=== PATIENT | female | born 1990 | race Caucasian/White ===

== ENCOUNTER → 2021-11-13 09:24 | Outpatient (CLI) | payer BC, SELFPAY ==
[2021-11-13 10:26] LABS: Add Manual Diff / Slide Review NO; Basophils Absolute Auto 0 /uL (0-100); Basophils Percent Auto 0.4 % (0-2); Eosinophils Absolute Auto 700 /uL (0-450); Eosinophils Percent Auto 6.5 % (2-4); Hematocrit 46.3 % (36-46); Hemoglobin 15.3 g/dL (12.0-16.0); Lymphocytes Absolute Auto 2300 /uL (1100-4500); Lymphocytes Percent Auto 23.2 % (25-40); Mean Corpuscular Hemoglobin 26.1 PG (26-34); Mean Corpuscular Volume 79.1 fL (80-100); Monocytes Absolute Auto 800 /uL (0-900); Monocytes Percent Auto 7.5 % (3-14); Neutrophils Absolute Auto 6300 /uL (1500-7000); Neutrophils Percent Auto 62.4 % (50-75); Platelet Count 346 X10^3/uL (150-400); Red Blood Cell Count 5.86 X10^6/uL (4.0-5.2); Red Cell Distribution Width 14.7 % (11.6-14.8); White Blood Cell Count 10.1 X10^3/uL (4.5-11.0)
[2021-11-13 10:43] LABS: Alanine Aminotransferase 24 IU/L (<35); Albumin 4.3 g/dL (3.5-5.0); Albumin Globulin Ratio 1.1 (1.0-2.8); Alkaline Phosphatase 107 U/L (38-126); Aspartate Aminotransferase 28 IU/L (14-36); BUN Creatinine Ratio 23.8 (6-22); Bilirubin Total 0.3 mg/dL (0.2-1.3); Blood Urea Nitrogen 19 mg/dL (7-17); Calcium 9.1 mg/dL (8.4-10.2); Carbon Dioxide 26 mmol/L (22-32); Chloride 104 mmol/L (98-107); Cholesterol 205 mg/dL (140-199); Estimated Glomerular Filt Rate > 60 mL/min (>60); Globulin 3.8 g/dL (1.7-4.1); Glucose 90 mg/dL (70-100); HDL Cholesterol 31 mg/dL (40-60); HEMOLYSIS < 15 (0-50); LDL Cholesterol Calculated 146 mg/dL (<100); Potassium 4.2 mmol/L (3.4-5.1); Sodium 143 mmol/L (137-145); Total Protein 8.1 g/dL (6.3-8.2); Triglycerides 139 mg/dL (35-150)
[2021-11-13 11:07] LABS: TSH w/ Reflex to FT4 1.37 uIU/mL (0.47-4.68)
[2021-11-24 14:07] LABS: Percent Free Testosterone 1.84 % (0.50-2.80); Testosterone Free 3.26 ng/dL (0.10-0.85); Testosterone Total 177.3 ng/dL (10.0-55.0)
== END ==
PROVIDERS: PCP Family Medicine; Referring Provider Family Medicine; Visit Provider Family Medicine
DX: F64.0 Transsexualism (principal); N28.0 Ischemia and infarction of kidney; Z79.01 Long term (current) use of anticoagulants; Z79.899 Other long term (current) drug therapy; Z87.890 Personal history of sex reassignment
CPT/HCPCS: 36415; 80053; 80061; 84402; 84403; 84443; 85025

== ENCOUNTER → 2022-02-22 09:20 | Outpatient (CLI) | payer OTHER, SELFPAY ==
[2022-02-22 09:54] LABS: Add Manual Diff / Slide Review NO; Basophils Absolute Auto 100 /uL (0-100); Basophils Percent Auto 0.9 % (0-2); Eosinophils Absolute Auto 1000 /uL (0-450); Eosinophils Percent Auto 8.7 % (2-4); Hemoglobin 15.4 g/dL (12.0-16.0); Lymphocytes Absolute Auto 2500 /uL (1100-4500); Lymphocytes Percent Auto 21.5 % (25-40); Mean Corpuscular HGB Conc 33.4 % (30-36); Mean Corpuscular Volume 77.9 fL (80-100); Monocytes Absolute Auto 800 /uL (0-900); Monocytes Percent Auto 6.7 % (3-14); Neutrophils Absolute Auto 7300 /uL (1500-7000); Neutrophils Percent Auto 62.2 % (50-75); Platelet Count 321 X10^3/uL (150-400); White Blood Cell Count 11.7 X10^3/uL (4.5-11.0)
[2022-02-22 10:08] LABS: D Dimer 313 ng/ml (<500)
[2022-02-22 10:11] LABS: Alanine Aminotransferase 35 IU/L (<35); Albumin 4.4 g/dL (3.5-5.0); Albumin Globulin Ratio 1.3 (1.0-2.8); Alkaline Phosphatase 112 U/L (38-126); Aspartate Aminotransferase 34 IU/L (14-36); BUN Creatinine Ratio 21.1 (6-22); Bilirubin Total 0.4 mg/dL (0.2-1.3); Blood Urea Nitrogen 15 mg/dL (7-17); Calcium 9.2 mg/dL (8.4-10.2); Carbon Dioxide 25 mmol/L (22-32); Chloride 103 mmol/L (98-107); Estimated Glomerular Filt Rate > 60 mL/min (>60); Globulin 3.5 g/dL (1.7-4.1); Glucose 92 mg/dL (70-100); HEMOLYSIS < 15 (0-50); Potassium 4.5 mmol/L (3.4-5.1); Sodium 141 mmol/L (137-145); Total Protein 7.9 g/dL (6.3-8.2)
[2022-02-25 17:48] LABS: Cardiolipin Ab IgG <9 GPL U/mL (0-14); Cardiolipin Ab IgM <9 MPL U/mL (0-12)
[2022-02-26 13:09] LABS: ANA Screen, IFA Negative (.)
[2022-02-26 18:37] LABS: Dil Russell Viper Venom Conf 1.7 ratio (0.8-1.2); Dilute Russell Viper Venom 92.7 sec (0.0-47.0); Dilute Russell Viper Venom Mix 54.8 sec (0.0-40.4); Lupus Reflex Interpretation Comment: (.); PTT-LA 43.3 sec (0.0-51.9); Protein C-Functional 132 % (73-180); Protein S Antigen 135 % (60-150)
== END ==
PROVIDERS: PCP Family Medicine; Referring Provider Internal Medicine Medical Oncology; Visit Provider Internal Medicine Medical Oncology
DX: N28.0 Ischemia and infarction of kidney (principal)
CPT/HCPCS: 36415; 80053; 81240; 81241; 85025; 85300; 85303; 85306; 85379; 85598; 85613; 86038

== ENCOUNTER 2022-04-21 19:06 | Emergency (ER) | payer OTHER, SELFPAY ==
[2022-04-21] VITALS (12 sets, daily range): BP systolic 137–158; BP diastolic 78–104; PULSE 102–123; RESP 11–21; TEMP 38.2; O2SAT 76–100; BMI 39.0
--- NOTE | 2022-04-21 19:09 | DI.RAD.S_ITS ---
PROCEDURE: XR CHEST 1V INDICATIONS: suspected sepsis TECHNIQUE: One view of the chest was acquired. COMPARISON: None. FINDINGS: Surgical changes and devices: None. Lungs and pleura: Moderate size airspace opacity in right mid to lower lung field is seen extending to right hilar region.. No pleural effusions or pneumothorax. Mediastinum: Mediastinal contours appear normal. Heart size is normal. Bones and chest wall: No suspicious bony lesions. Overlying soft tissues appear unremarkable. IMPRESSION: Finding is suggestive of moderate to large size right lower lobe infiltrate. Left lung is clear. No pleural effusion or pneumothorax. Dictated by: Demond Swenson M.D. on 04/21/2022 at 19:32 Approved by: Demond Swenson M.D. on 04/21/2022 at 19:32
[2022-04-21 20:52] LABS: Adenovirus Not Detected (Not Detect); B. parapertussis Not Detected (Not Detecte); Bordetella pertussis Not Detected (Not Detecte); Chlamydophila pneumoniae Not Detected (Not Detect); Coronavirus 229E Not Detected (Not Detect); Coronavirus HKU1 Not Detected (Not Detect); Coronavirus NL 63 Not Detected (Not Detect); Coronavirus OC43 Not Detected (Not Detect); Human Metapneumovirus Detected (Not Detect); Human Rhinovirus/Enterovirus Not Detected (Not Detect); Influenza A Not Detected (Not Detect); Influenza B Not Detected (Not Detect); Mycoplasma pneumoniae Not Detected (Not Detect); Parainfluenza Virus 1 Not Detected (Not Detect); Parainfluenza Virus 2 Not Detected (Not Detect); Parainfluenza Virus 3 Not Detected (Not Detect); Parainfluenza Virus 4 Not Detected (Not Detect); Respiratory Syncytial Virus Not Detected (Not Detect); SARS- CoV-2 Not Detected (Not Detecte)
[2022-04-21 21:34] LABS: INR 1.4 (0.9-1.3); Prothrombin Time 16.5 SECONDS (10.1-12.7)
[2022-04-21 21:35] LABS: Add Manual Diff / Slide Review NO; Basophils Absolute Auto 0 /uL (0-100); Basophils Percent Auto 0.3 % (0-2); Eosinophils Absolute Auto 300 /uL (0-450); Eosinophils Percent Auto 3.1 % (2-4); Hematocrit 44.8 % (36-46); Hemoglobin 14.9 g/dL (12.0-16.0); Lymphocytes Absolute Auto 1100 /uL (1100-4500); Lymphocytes Percent Auto 10.7 % (25-40); Mean Corpuscular HGB Conc 33.3 % (30-36); Mean Corpuscular Volume 78.1 fL (80-100); Monocytes Absolute Auto 700 /uL (0-900); Monocytes Percent Auto 6.9 % (3-14); Neutrophils Absolute Auto 8400 /uL (1500-7000); Platelet Count 307 X10^3/uL (150-400); Red Blood Cell Count 5.74 X10^6/uL (4.0-5.2); Red Cell Distribution Width 14.9 % (11.6-14.8); White Blood Cell Count 10.6 X10^3/uL (4.5-11.0)
[2022-04-21 21:36] LABS: PTT Partial Thromboplastin Tim 46 SECONDS (26-36)
[2022-04-21 21:39] LABS: Lactate (Lactic Acid) 1.5 mmol/L (0.7-2.1)
[2022-04-21 21:40] LABS: Alanine Aminotransferase 37 IU/L (<35); Albumin 4.3 g/dL (3.5-5.0); Albumin Globulin Ratio 1.2 (1.0-2.8); Alkaline Phosphatase 115 U/L (38-126); Aspartate Aminotransferase 32 IU/L (14-36); BUN Creatinine Ratio 20.2 (6-22); Bilirubin Total 0.4 mg/dL (0.2-1.3); Blood Urea Nitrogen 17 mg/dL (7-17); Calcium 8.7 mg/dL (8.4-10.2); Carbon Dioxide 24 mmol/L (22-32); Chloride 102 mmol/L (98-107); Estimated Glomerular Filt Rate > 60 mL/min (>60); Globulin 3.6 g/dL (1.7-4.1); Glucose 88 mg/dL (70-100); HEMOLYSIS < 15 (0-50); Lipase 69 U/L (23-300); Potassium 3.7 mmol/L (3.4-5.1); Sodium 138 mmol/L (137-145); Total Protein 7.9 g/dL (6.3-8.2)
[2022-04-21 21:56] LABS: Procalcitonin 0.06 ng/mL (<0.5)
--- NOTE | 2022-04-21 22:36 | ED_ITS ---
HPI - SOB/Dyspnea General Chief Complaint: Fever Stated Complaint: shivers, fever 101, body aches came from [facility] Time Seen by Provider: 04/21/22 20:31 History of Present Illness HPI Narrative: Patient is a 32-year-old female to male transgender history of asthma, lupus on Eliquis presenting today with coughing body aches ongoing for the last 3 days. Having coughing fits difficulty breathing. Using nebulizer 3 times a last 2 days. Sometimes feels like chest tightness and it hurts to breathe. Definitely short of breath with exertion denies any orthopnea. Been taking DayQuil as we ll. No abdominal pain nausea or vomiting Related Data Home Medications Medication Instructions Recorded Confirmed albuterol sulfate 1.25 mg/3 mL 1.25 mg inhalation QID PRN Wheezing 10/25/21 12/25/21 solution for nebulization albuterol sulfate 90 mcg/actuation 2 puff inhalation Q6H PRN Wheezing 10/25/21 12/25/21 aerosol inhaler calcium citrate 200 mg (950 mg) 200 mg PO DAILY 10/25/21 12/25/21 tablet cetirizine 10 mg capsule (Zyrtec) 10 mg PO DAILY PRN Allergy Symptoms 10/25/21 12/25/21 ferrous gluconate 225 mg (27 mg 225 mg PO DAILY 10/25/21 12/25/21 iron) tablet (Fergon) fluticasone 250 mcg-salmeterol 50 1 inh inhalation BID 10/25/21 12/25/21 mcg/dose blistr powdr for inhalation (Advair Diskus) fluticasone propionate 50 1 spray intranasal DAILY 10/25/21 12/25/21 mcg/actuation nasal spray,suspension montelukast 10 mg tablet 10 mg PO DAILY 10/25/21 12/25/21 (Singulair) multivitamin 1 tab PO DAILY 10/25/21 12/25/21 Previous Rx's Medication Instructions Recorded apixaban 5 mg tablet (Eliquis) See Rx Instructions .Route 12/10/21 .COMPLEX #90 tabs testosterone 1.62 % (20.25 mg/1.25 1 packet topical DAILY #37.5 grams 02/28/22 gram) transdermal gel packet diazepam 5 mg tablet (Valium) 5 mg PO ONCE PRN anxiety #3 tabs 03/11/22 amoxicillin 500 mg capsule 1,000 mg PO TID 5 days #30 caps 04/22/22 azithromycin 250 mg tablet 250 mg PO DAILY 5 days #6 tabs 04/22/22 (Zithromax Z-Andrea) guaifenesin 600 mg tablet, 600 mg PO Q12H PRN cough #20 tabs 04/22/22 extended release 12 hr (Mucinex) hydrocodone-homatropine 5 mg-1.5 5 ml PO Q6H PRN cough #100 mL 04/22/22 mg/5 mL (5 mL) oral syrup Allergies Allergy/AdvReac Type Severity Reaction Status Date / Time No Known Drug Allergies Allergy Verified 04/21/22 19:17 Review of Systems Review of Systems ROS Unobtainable: All systems reviewed & are unremarkable except as noted in HPI and below Patient History Medical History ADHD Allergies Anemia Anxiety Asthma Chicken pox Chronic anticoagulation Depression Eczema Irritable bowel syndrome (~2012) Renal infarction (~2020) Scoliosis Seasonal allergies 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) Surgical History Anesthesia History of hysterectomy (~12/2019) Transgender with history of gender affirmation surgery Family History Father History of heart disease Hypertension Mother Diabetes mellitus Mental health problem Stroke Sister Mental health problem Sister Mental health problem Grandmother Cancer Grandmother Alzheimer's disease Social History Smoking Status: Never smoker Smoking Status: Never smoker Substance Use Type: does not use Exam Initial Vital Signs Initial Vital Signs: Vital Signs Temperature 100.7 F H 04/21/22 19:13 Pulse Rate 114 H 04/21/22 19:13 Respiratory Rate 18 04/21/22 19:13 Blood Pressure 155/104 H 04/21/22 19:13 Pulse Oximetry 100 04/21/22 19:13 Oxygen Delivery Method Room Air 04/21/22 19:13 GENERAL: Alert pleasant 82-year-old HEENT: Head atraumatic,EOMI, pupils reactive, face symmetric, [moist] mucous membranes CARDIOVASCULAR: Tachycardic no murmurs RESPIRATORY: Breath sounds equal bilaterally, no wheezes rales or rhonchi. No c onversational dyspnea ABDOMEN: Soft, nontender. Normoactive bowel sounds all 4 quadrants. No guard ing or rebound. EXTREMITIES: Normal range of motion, no clubbing or edema. Neurovascularly intact NEUROLOGICAL: Alert and oriented x4.Normal gait and speech. SKIN: Warm, dry, no laceration, no petechiae, no rashes or lesions. Scores CURB-65 Confusion: No BUN >19mg/dL (>7mmol/L): No Respiratory rate greater or equal to 30: No SBP <90mmHg or DBP less or equal to 60mmHg: No Age 65 or Older: No CURB-65 Total: 0 Score 0-1 Outpatient care, Score 2 Inpt vs. Obs, Score 3 or over Inpt admit with ICU for score of 4-5 Course Orders Ordered: Discontinued Medications Hydrocodone Bitart/Acetaminophen (Hydrocodone/Acet 5/325 Tablet) 1 tab PO NOW ONE Stop: 04/21/22 23:12 Last Admin: 04/21/22 23:17 Dose: 1 tab Documented By: ARABELLA Albuterol/Ipratropium (Albuterol/Ipratropium 3 Ml Ampul) 3 ml INH NOW ONE Stop: 04/21/22 23:14 Last Admin: 04/21/22 23:13 Dose: 3 ml Documented By: SOY Amoxicillin (Amoxicillin 250 Mg Capsule) 1,000 mg PO NOW ONE Stop: 04/21/22 23:54 Last Admin: 04/21/22 23:59 Dose: 1,000 mg Documented By: ARABELLA Doxycycline Hyclate (Doxycycline Hyclate 100 Mg Tablet) 100 mg PO NOW ONE Stop: 04/21/22 23:54 Last Admin: 04/21/22 23:59 Dose: 100 mg Documented By: ARABELLA Sodium Chloride (Normal Saline 0.9%) 1,000 mls @ 1,000 mls/hr IV BOLUS ONE Stop: 04/21/22 20:08 Ondansetron HCl (Ondansetron 4 Mg Odt) 4 mg SL NOW PRN PRN Reason: Nausea And Vomiting Ondansetron HCl (Ondansetron 4 Mg/2 Ml Inj) 4 mg IV NOW PRN PRN Reason: Nausea And Vomiting Vital Signs Vital signs: Vital Signs - 8 hr 04/21/22 23:19 04/21/22 23:30 03/13/23 23:30 Pulse Rate 118 H 120 H Respiratory Rate 20 21 Blood Pressure 151/94 H Pulse Oximetry 99 98 Oxygen Delivery Method Room Air Oxygen Flow Rate 0 Fraction of Inspired Oxygen 21 04/22/22 00:00 04/22/22 00:00 Pulse Rate 103 H Respiratory Rate 22 Blood Pressure 137/82 Pulse Oximetry 96 Oxygen Delivery Method Oxygen Flow Rate Fraction of Inspired Oxygen MDM - SOB/Dyspnea Lab Data 04/21/22 21:06 04/21/22 21:06 Labs: Lab Results 04/21/22 04/21/22 04/21/22 Range/Units 19:19 21:06 21:06 WBC 10.6 (4.5-11.0) X10^3/uL RBC 5.74 H (4.0-5.2) X10^6/uL Hgb 14.9 (12.0-16.0) g/dL Hct 44.8 (36-46) % MCV 78.1 L (80-100) fL MCH 26.0 (26-34) PG MCHC 33.3 (30-36) % RDW 14.9 H (11.6-14.8) % Plt Count 307 (150-400) X10^3/uL Neut % (Auto) 79.0 H (50-75) % Lymph % (Auto) 10.7 L (25-40) % [place] % (Auto) 6.9 (3-14) % Eos % (Auto) 3.1 (2-4) % Baso % (Auto) 0.3 (0-2) % Neut # (Auto) 8400 H (5858-6007) /uL Lymph # (Auto) 1100 (0356-4845) /uL [place] # (Auto) 700 (0-900) /uL Eos # (Auto) 300 (0-450) /uL Baso # (Auto) 0 (0-100) /uL PT 16.5 H (10.1-12.7) SECONDS INR 1.4 H (0.9-1.3) APTT 46 H (26-36) SECONDS Sodium (137-145) mmol/L Potassium (3.4-5.1) mmol/L Chloride (98-107) mmol/L Carbon Dioxide (22-32) mmol/L BUN (7-17) mg/dL Creatinine (0.52-1.04) mg/dL Estimated GFR (>60) mL/min BUN/Creatinine Ratio (6-22) Glucose (70-100) mg/dL Lactate (0.7-2.1) mmol/L Calcium (8.4-10.2) mg/dL Total Bilirubin (0.2-1.3) mg/dL AST (14-36) IU/L ALT (<35) IU/L Alkaline Phosphatase (38-126) U/L Total Protein (6.3-8.2) g/dL Albumin (3.5-5.0) g/dL Globulin (1.7-4.1) g/dL Albumin/Globulin Ratio (1.0-2.8) Lipase (23-300) U/L Procalcitonin (<0.5) ng/mL Urine RBC (0-5/HPF) Urine WBC (0-5/HPF) Urine Bacteria (None) Ur Culture Indicated? Chlamy pneumoniae PCR Not detected (Not Detect) Adenovirus (PCR) Not detected (Not Detect) B. pertussis DNA (PCR) Not detected (Not Detecte) B.parapertussis DNA PCR Not detected (Not Detecte) Coronavirus OC43 (PCR) Not detected (Not Detect) Coronavirus HKU1 (PCR) Not detected (Not Detect) Coronavirus 229E (PCR) Not detected (Not Detect) SARS-CoV-2 (PCR) Not detected (Not Detecte) Coronavirus NL63 (PCR) Not detected (Not Detect) Human Metapneumovir PCR Detected H (Not Detect) Influenza Type A (PCR) Not detected (Not Detect) Influenza Type B (PCR) Not detected (Not Detect) M. pneumoniae (PCR) Not detected (Not Detect) Parainfluenza 1 (PCR) Not detected (Not Detect) Parainfluenza 2 (PCR) Not detected (Not Detect) Parainfluenza 3 (PCR) Not detected (Not Detect) Parainfluenza 4 (PCR) Not detected (Not Detect) RSV (PCR) Not detected (Not Detect) Entero/Rhino (PCR) Not detected (Not Detect) 04/21/22 04/21/22 04/21/22 Range/Units 21:06 21:06 22:23 WBC (4.5-11.0) X10^3/uL RBC (4.0-5.2) X10^6/uL Hgb (12.0-16.0) g/dL Hct (36-46) % MCV (80-100) fL MCH (26-34) PG MCHC (30-36) % RDW (11.6-14.8) % Plt Count (150-400) X10^3/uL Neut % (Auto) (50-75) % Lymph % (Auto) (25-40) % [place] % (Auto) (3-14) % Eos % (Auto) (2-4) % Baso % (Auto) (0-2) % Neut # (Auto) (4867-1401) /uL Lymph # (Auto) (3456-3233) /uL [place] # (Auto) (0-900) /uL Eos # (Auto) (0-450) /uL Baso # (Auto) (0-100) /uL PT (10.1-12.7) SECONDS INR (0.9-1.3) APTT (26-36) SECONDS Sodium 138 (137-145) mmol/L Potassium 3.7 (3.4-5.1) mmol/L Chloride 102 (98-107) mmol/L Carbon Dioxide 24 (22-32) mmol/L BUN 17 (7-17) mg/dL Creatinine 0.84 (0.52-1.04) mg/dL Estimated GFR > 60 (>60) mL/min BUN/Creatinine Ratio 20.2 (6-22) Glucose 88 (70-100) mg/dL Lactate 1.5 (0.7-2.1) mmol/L Calcium 8.7 (8.4-10.2) mg/dL Total Bilirubin 0.4 (0.2-1.3) mg/dL AST 32 (14-36) IU/L ALT 37 H (<35) IU/L Alkaline Phosphatase 115 (38-126) U/L Total Protein 7.9 (6.3-8.2) g/dL Albumin 4.3 (3.5-5.0) g/dL Globulin 3.6 (1.7-4.1) g/dL Albumin/Globulin Ratio 1.2 (1.0-2.8) Lipase 69 (23-300) U/L Procalcitonin 0.06 (<0.5) ng/mL Urine RBC 1-5/hpf (0-5/HPF) Urine WBC 0-1/hpf (0-5/HPF) Urine Bacteria None seen (None) Ur Culture Indicated? Cult not indicated Chlamy pneumoniae PCR (Not Detect) Adenovirus (PCR) (Not Detect) B. pertussis DNA (PCR) (Not Detecte) B.parapertussis DNA PCR (Not Detecte) Coronavirus OC43 (PCR) (Not Detect) Coronavirus HKU1 (PCR) (Not Detect) Coronavirus 229E (PCR) (Not Detect) SARS-CoV-2 (PCR) (Not Detecte) Coronavirus NL63 (PCR) (Not Detect) Human Metapneumovir PCR (Not Detect) Influenza Type A (PCR) (Not Detect) Influenza Type B (PCR) (Not Detect) M. pneumoniae (PCR) (Not Detect) Parainfluenza 1 (PCR) (Not Detect) Parainfluenza 2 (PCR) (Not Detect) Parainfluenza 3 (PCR) (Not Detect) Parainfluenza 4 (PCR) (Not Detect) RSV (PCR) (Not Detect) Entero/Rhino (PCR) (Not Detect) Urine Dip Bedside Urine Glucose Negative Bedside Urine Bilirubin - Negative Bedside Urine Ketone - Negative Urine Specific [place] 1.015 Bedside Urine Occult Blood +/- Bedside Urine pH 7.5 Bedside Urine Protein - Negative Bedside Urine Urobilinogen - Negative Bedside Urine Nitrite - Negative Bedside Urine Leukocytes - Negative Esterase Imaging Data Chest x-ray: Radiologist's Impression: PROCEDURE:? XR CHEST 1V ? INDICATIONS:? suspected sepsis ? TECHNIQUE:? One view of the chest was acquired.? ? COMPARISON:? None. ? FINDINGS:? ? Surgical changes and devices:? None.? ? Lungs and pleura:? Moderate size airspace opacity in right mid to lower lung field is seen extending to right hilar region..? No pleural effusions or pneumothorax.? ? Mediastinum:? Mediastinal contours appear normal.? Heart size is normal.? ? Bones and chest wall:? No suspicious bony lesions.? Overlying soft tissues appe ar unremarkable.? ? IMPRESSION:? Finding is suggestive of moderate to large size right lower lobe in filtrate. ?Left lung is clear.? No pleural effusion or pneumothorax. ? ? Dictated by: Demond Swenson M.D. on 04/21/2022 at 19:32 ? ? Approved by: Demond Swenson M.D. on 04/21/2022 at 19:32 ECG Data Interpretation: Sinus tachycardia rate [address] changes MDM Narrative Medical decision making narrative: Patient positive for human metapneumovirus along with pneumonia. Persistently tachycardic not hypoxic on Eliquis unlikely to be pulmonary embolism. No significant conversational dyspnea complaining of pain with breathing and coughing. Blood work is overall reassuring WBC 10.6, electrolytes with out any abnormality no eye procalcitonin 0.06 and lactate 1.5. Chest x-ray does show an ammonia. Patient has given his 1st dose of antibiotics here. He got 1 tablet of [place] which seem to help with coughing. Albuterol also did help. Heart rate improved with fluids and pain control. 65 score is 0. Reasonable to patient as an outpatient. Given prescriptions for community-acquired pneumonia. At this time feeling bit better. Really does not have significant wheezing does not require more than a DuoNeb here in the ED. Unfortunately patient extremely hard IV start. Never actually got IV fluids. However tolerating oral fluids not hypotensive not febrile. Does not actually need an IV or fluids. Heart rate improved. Discharge Plan Departure Patient Disposition: Home Clinical Impression: Pneumonia Instructions: DI for Pneumonia -- Adult Activity Restrictions/Additional Instructions: *You have been diagnosed with pneumonia *What to do: At this time you have pneumonia and human metapneumovirus. You actually do need antibiotics. Rest and hydrate make. *Continue to take medications as directed--> [facility]NT TO [facility] Amoxicillin 1000 mg once a day for 5 days Azithromycin take as directed Mucinex 600 mg q.12 hydrocodone/homatropine cough syrup 5 mL at night if needed for coughing *Follow up with your primary care provider in 2-3 days or call [phone] *Return to ER if you should have increasing shortness of breath not tolerating fluids, increasing chest [or] any new, worsening or concerning symptoms CONTROLLED SUBSTANCE DISCHARGE (Narcotoic/benzodiazepine/Flexeril/Phenergan) 1. You have been prescribed narcotic medications, it does have acetaminophen/Tylenol/paracetamol in it, DO NOT TAKE MORE THAN 4,00mg in 24 hours of Tylenol. TRAMADOL DOES NOT CONTAIN TYLENOL 2. Please understand that we cannot provide further refills of narcotics, benzodiazepines or controlled substances through the ED and her pain management will need to be through your provider. 3. While on these medications you cannot drive or operate heavy machinery. 4. You cannot sign legal documents or perform any duties such as this. 5. As long as you're taking opiate pain medications he should also be taking a stool softener such as Colace, Dulcolax, MiraLAX or prune juice, to help avoid constipation. Prescriptions: New amoxicillin 500 mg capsule 1,000 mg PO TID 5 Days Qty: 30 0RF hydrocodone-homatropine 5-1.5 mg/5 mL (5 mL) syrup 5 ml PO Q6H PRN (Reason: cough) Qty: 100 0RF guaifenesin [Mucinex] 600 mg tablet extended release 12hr 600 mg PO Q12H PRN (Reason: cough) Qty: 20 0RF azithromycin [Zithromax Z-Andrea] 250 mg tablet 250 mg PO DAILY 5 Days Qty: 6 0RF No Action Eliquis 5 mg tablet See Rx Instructions .ROUTE .COMPLEX Qty: 90 3RF Dose Instruction: take 1 tablet by mouth twice a day Rx Instructions: take 1 tablet by mouth twice a day testosterone 1.62 % (20.25 mg/1.25 gram) gel in packet 1 packet topical DAILY Qty: 37.5 3RF diazepam [Valium] 5 mg tablet 5 mg PO ONCE PRN (Reason: anxiety) Qty: 3 0RF Rx Instructions: take 1 tab 45 minutes prior to dental procedure montelukast [Singulair] 10 mg tablet 10 mg PO DAILY Zyrtec 10 mg capsule 10 mg PO DAILY PRN (Reason: Allergy Symptoms) Fergon 225 mg (27 mg iron) tablet 225 mg PO DAILY multivitamin Tablet 1 tab PO DAILY fluticasone propion-salmeterol [Advair Diskus] 250-50 mcg/dose blister with device 1 inh inhalation BID fluticasone propionate 50 mcg/actuation spray,suspension 1 spray intranasal DAILY Rx Instructions: administer into each nostril albuterol sulfate 90 mcg/actuation HFA aerosol inhaler 2 puff inhalation Q6H PRN (Reason: Wheezing) albuterol sulfate 1.25 mg/3 mL solution for nebulization 1.25 mg inhalation QID PRN (Reason: Wheezing) calcium citrate 200 mg (950 mg) tablet 200 mg PO DAILY Referrals: Ochoa Owens MD [Primary Care Provider] - Stand Alone Forms: Patient Portal/API, Work Release Note
[2022-04-21 23:05] LABS: Bacteria Urine None Seen; Culture Indicated Urine Cult Not Indicated; RBC Urine 1-5/HPF (0-5/HPF); WBC Urine 0-1/HPF (0-5/HPF)
[2022-04-21] MEDS: ALBUTEROL/IPRATROPIUM 3 ML AMPUL INH (23:13)
[2022-04-21] MEDS: HYDROCODONE/ACET 5/325 TABLET 1 TAB PO (23:17)
[2022-04-21] MEDS: DOXYCYCLINE HYCLATE 100 MG TABLET PO (23:59)
[2022-04-21] MEDS: AMOXICILLIN 250 MG CAPSULE 1000 MG PO (23:59)
[2022-04-22] VITALS: BP 137/82; PULSE 103; RESP 22; O2SAT 96
== END 2022-04-22 00:34 | disposition home or self-care (01) ==
PROVIDERS: Emergency Provider Emergency Medicine; PCP Family Medicine
DX: J18.9 Pneumonia, unspecified organism (principal); R00.0 Tachycardia, unspecified; Z79.01 Long term (current) use of anticoagulants
CPT/HCPCS: 36415; 71045; 80053; 81003; 81015; 83605; 83690; 84145; 85025; 85610; 85730; 87040; 87633; 93005; 93010; 94640; 99284

== ENCOUNTER → 2022-06-03 15:25 | Outpatient (CLI) | payer OTHER, SELFPAY ==
--- NOTE | 2022-06-03 15:26 | DI.RAD.S_ITS ---
PROCEDURE: XR CHEST 2V INDICATIONS: pneumonia follow up TECHNIQUE: 2 views of the chest were acquired. COMPARISON: [facility], CR, XR CHEST 1V, 04/21/2022, 19:12. FINDINGS: Surgical changes and devices: None. Lungs and pleura: Lungs are clear. Previously identified right basilar opacification has resolved. No pleural effusions or pneumothorax. Mediastinum: Mediastinal contours are normal. Heart size is normal. Bones and chest wall: No suspicious bony abnormalities. Soft tissues appear unremarkable. IMPRESSION: No acute cardiopulmonary disease process. Dictated by: Lilliam Mccloud MD, PhD on 06/03/2022 at 15:57 Approved by: Lilliam Mccloud MD, PhD on 06/03/2022 at 15:58
== END ==
PROVIDERS: PCP Family Medicine; Referring Provider Family Medicine; Visit Provider Family Medicine
DX: J18.9 Pneumonia, unspecified organism (principal); R03.0 Elevated blood-pressure reading, without diagnosis of hypertension
CPT/HCPCS: 71046

== ENCOUNTER 2022-07-09 22:19 | Inpatient (IN) | payer OTHER, SELFPAY ==
[2022-07-09 22:27] VITALS: BP 145/100; PULSE 145; RESP 28; TEMP 37; O2SAT 99; BMI 39.4
[2022-07-09 22:43] VITALS: PULSE 136; RESP 26; O2SAT 98
--- NOTE | 2022-07-09 22:46 | DI.RAD.S_ITS ---
PROCEDURE: XR CHEST 1V INDICATIONS: eval fpr PNA TECHNIQUE: One view of the chest was acquired. COMPARISON: [facility], CR, XR CHEST 2V, 06/03/2022, 15:23. FINDINGS: Surgical changes and devices: None. Lungs and pleura: Lungs are clear. No pleural effusions or pneumothorax. Mediastinum: Mediastinal contours appear normal. Heart size is normal. Bones and chest wall: No suspicious bony lesions. Overlying soft tissues appear unremarkable. IMPRESSION: 1. No acute cardiopulmonary disease. Dictated by: Job Rodriguez M.D. on 07/09/2022 at 23:36 Approved by: Job Rodriguez M.D. on 07/09/2022 at 23:36
--- NOTE | 2022-07-09 22:46 | ED_ITS ---
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 Apparently the patient has had an infection in the past related to eczema. Patient states that symptoms started this evening. Is having whole-body discomfort. Fevers at home for which he took Tylenol prior to arrival. Denies chest pain, sore throat, cough, headache, chest pain, shortness of breath, abdominal pain, nausea vomiting, urinary symptoms, diarrhea, constipation. Related Data Home Medications Medication Instructions Recorded Confirmed albuterol sulfate 1.25 mg/3 mL 1.25 mg inhalation QID PRN Wheezing 10/25/21 06/03/22 solution for nebulization albuterol sulfate 90 mcg/actuation 2 puff inhalation Q6H PRN Wheezing 10/25/21 06/03/22 aerosol inhaler calcium citrate 200 mg (950 mg) 200 mg PO DAILY 10/25/21 06/03/22 tablet cetirizine 10 mg capsule (Zyrtec) 10 mg PO DAILY PRN Allergy Symptoms 10/25/21 06/03/22 ferrous gluconate 225 mg (27 mg 225 mg PO DAILY 10/25/21 06/03/22 iron) tablet (Fergon) fluticasone 250 mcg-salmeterol 50 1 inh inhalation BID 10/25/21 06/03/22 mcg/dose blistr powdr for inhalation (Advair Diskus) fluticasone propionate 50 1 spray intranasal DAILY 10/25/21 06/03/22 mcg/actuation nasal spray,suspension montelukast 10 mg tablet 10 mg PO DAILY 10/25/21 06/03/22 (Singulair) multivitamin 1 tab PO DAILY 10/25/21 06/03/22 Previous Rx's Medication Instructions Recorded diazepam 5 mg tablet (Valium) 5 mg PO ONCE PRN anxiety #3 tabs 03/11/22 apixaban 5 mg tablet (Eliquis) See Rx Instructions .Route 06/04/22 .COMPLEX #90 tabs testosterone 1.62 % (20.25 mg/1.25 1 packet topical DAILY #37.5 grams 06/30/22 gram) transdermal gel packet Allergies Allergy/AdvReac Type Severity Reaction Status Date / Time No Known Drug Allergies Allergy Verified 04/21/22 19:17 Review of Systems Review of Systems ROS Unobtainable: All systems reviewed & are unremarkable except as noted in HPI and below Patient History Medical History ADHD Allergies Anemia Anxiety Asthma Chicken pox Chronic anticoagulation Depression Eczema Irritable bowel syndrome (~2012) Renal infarction (~2020) Scoliosis Seasonal allergies 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) Surgical History Anesthesia History of hysterectomy (~12/2019) Transgender with history of gender affirmation surgery Family History Father History of heart disease Hypertension Mother Diabetes mellitus Mental health problem Stroke Sister Mental health problem Sister Mental health problem Grandmother Cancer Grandmother Alzheimer's disease Social History Smoking Status: Never smoker Smoking Status: Never smoker Substance Use Type: does not use Exam Initial Vital Signs Initial Vital Signs: Vital Signs Temperature 98.6 F 07/09/22 22:27 Pulse Rate 145 H 07/09/22 22:27 Respiratory Rate 28 H 07/09/22 22:27 Blood Pressure 145/100 H 07/09/22 22:27 Pulse Oximetry 99 07/09/22 22:27 Oxygen Delivery Method Room Air 07/09/22 22:27 Const General: cooperative, comfortable and No ill appearing HENMT Head: normal to inspection and normocephalic Resp Effort & Inspection: normal respiratory effort and tachypneic Auscultation: clear to auscultation bilaterally Cardio Rate: regular rate and tachycardic Rhythm: regular rhythm GI Inspection: normal to inspection Palpation: soft, No firm, No guarding and No tender Skin Other: Patient does have eczema located on the lower legs and upper back but no signs of cellulitis. Neuro General: patient alert, patient awake and moves all extremities Cognition: normal cognition Speech: speech normal Extrem General: No edema Scores GCS [place] coma scale eye opening: Spontaneous [place] coma scale verbal response: Orientated Adriana coma scale motor response: Obey commands Adriana coma scale total score: 15 Course Orders Ordered: ED Orders 07/09/22 22:33 EKG-12 Lead Stat 07/09/22 22:43 Complete Blood Count AUTO DIFF Stat Comprehensive Metabolic Panel Stat Lactate (Lactic Acid) Stat Lipase Stat Test Serum,Qual Stat Procalcitonin Stat 07/09/22 22:45 Blood Culture Stat 07/09/22 22:46 XR chest 1V Stat 07/09/22 23:51 Urine Culture Stat 07/09/22 23:57 Respiratory Panel (Film Array) Stat Discontinued Medications Sodium Chloride (Normal Saline 0.9%) 1,000 mls @ 1,000 mls/hr IV BOLUS ONE Stop: 07/09/22 23:30 Last Infusion: 07/09/22 23:55 Dose: 0 mls/hr Documented By: Admin: 07/09/22 22:50 Dose: 1,000 mls/hr Documented By: SPF Ceftriaxone Sodium 1,000 mg/ (Sodium Chloride) 100 mls @ 200 mls/hr IV NOW ONE Stop: 07/09/22 23:03 Last Infusion: 07/09/22 23:56 Dose: 0 mls/hr Documented By: Admin: 07/09/22 23:11 Dose: 200 mls/hr Documented By: SPF Sodium Chloride (Normal Saline 0.9%) 1,000 mls @ 1,000 mls/hr IV BOLUS ONE Stop: 07/10/22 00:54 Last Admin: 07/10/22 00:03 Dose: 1,000 mls/hr Documented By: Vital Signs Vital signs: Vital Signs - 8 hr 07/09/22 22:27 07/09/22 22:43 07/09/22 23:00 Temperature 98.6 F Pulse Rate 145 H 136 H Respiratory Rate 28 H 26 H Blood Pressure 145/100 H 150/88 H Pulse Oximetry 99 98 Oxygen Delivery Method Room Air Room Air 07/09/22 23:00 07/09/22 23:30 07/09/22 23:30 Temperature Pulse Rate 140 H 134 H Respiratory Rate 24 21 Blood Pressure 150/80 H Pulse Oximetry 99 97 Oxygen Delivery Method Room Air 07/09/22 23:50 07/09/22 23:50 07/10/22 00:00 Temperature Pulse Rate 136 H Respiratory Rate 23 Blood Pressure 169/86 H 165/85 H Pulse Oximetry 98 Oxygen Delivery Method 07/10/22 00:00 07/10/22 00:30 07/10/22 00:30 Temperature Pulse Rate 134 H 129 H Respiratory Rate 23 24 Blood Pressure 161/82 H Pulse Oximetry 97 98 Oxygen Delivery Method MDM - Arrhythmia/Palpitations Lab Data Attestation: I reviewed the patient's lab results. 07/09/22 22:43 07/09/22 22:43 Labs: Lab Results 07/09/22 07/09/22 07/09/22 Range/Units 22:43 22:43 22:43 WBC 25.9 H (4.5-11.0) X10^3/uL RBC 5.55 H (4.0-5.2) X10^6/uL Hgb 14.5 (12.0-16.0) g/dL Hct 42.7 (36-46) % MCV 76.9 L (80-100) fL MCH 26.0 (26-34) PG MCHC 33.9 (30-36) % RDW 14.9 H (11.6-14.8) % Plt Count 354 (150-400) X10^3/uL Neut % (Auto) 87.9 H (50-75) % Lymph % (Auto) 5.0 L (25-40) % [place] % (Auto) 4.5 (3-14) % Eos % (Auto) 2.5 (2-4) % Baso % (Auto) 0.1 (0-2) % Neut # (Auto) 93232 H (2958-2873) /uL Lymph # (Auto) 1300 (5279-1219) /uL [place] # (Auto) 1200 H (0-900) /uL Eos # (Auto) 700 H (0-450) /uL Baso # (Auto) 0 (0-100) /uL Sodium 137 (137-145) mmol/L Potassium 4.0 (3.4-5.1) mmol/L Chloride 100 (98-107) mmol/L Carbon Dioxide 26 (22-32) mmol/L BUN 23 H (7-17) mg/dL Creatinine 0.80 (0.52-1.04) mg/dL Estimated GFR > 60 (>60) mL/min BUN/Creatinine Ratio 28.8 H (6-22) Glucose 135 H (70-100) mg/dL Lactate 1.9 (0.7-2.1) mmol/L Calcium 9.6 (8.4-10.2) mg/dL Total Bilirubin 0.4 (0.2-1.3) mg/dL AST 35 (14-36) IU/L ALT 40 H (<35) IU/L Alkaline Phosphatase 137 H (38-126) U/L Total Protein 8.7 H (6.3-8.2) g/dL Albumin 4.8 (3.5-5.0) g/dL Globulin 3.9 (1.7-4.1) g/dL Albumin/Globulin Ratio 1.2 (1.0-2.8) Lipase 68 (23-300) U/L Procalcitonin 0.05 (<0.5) ng/mL Serum , Qual (Negative) 07/09/22 Range/Units 22:43 WBC (4.5-11.0) X10^3/uL RBC (4.0-5.2) X10^6/uL Hgb (12.0-16.0) g/dL Hct (36-46) % MCV (80-100) fL MCH (26-34) PG MCHC (30-36) % RDW (11.6-14.8) % Plt Count (150-400) X10^3/uL Neut % (Auto) (50-75) % Lymph % (Auto) (25-40) % [place] % (Auto) (3-14) % Eos % (Auto) (2-4) % Baso % (Auto) (0-2) % Neut # (Auto) (9302-0317) /uL Lymph # (Auto) (5760-0065) /uL [place] # (Auto) (0-900) /uL Eos # (Auto) (0-450) /uL Baso # (Auto) (0-100) /uL Sodium (137-145) mmol/L Potassium (3.4-5.1) mmol/L Chloride (98-107) mmol/L Carbon Dioxide (22-32) mmol/L BUN (7-17) mg/dL Creatinine (0.52-1.04) mg/dL Estimated GFR (>60) mL/min BUN/Creatinine Ratio (6-22) Glucose (70-100) mg/dL Lactate (0.7-2.1) mmol/L Calcium (8.4-10.2) mg/dL Total Bilirubin (0.2-1.3) mg/dL AST (14-36) IU/L ALT (<35) IU/L Alkaline Phosphatase (38-126) U/L Total Protein (6.3-8.2) g/dL Albumin (3.5-5.0) g/dL Globulin (1.7-4.1) g/dL Albumin/Globulin Ratio (1.0-2.8) Lipase (23-300) U/L Procalcitonin (<0.5) ng/mL Serum , Qual Negative (Negative) Urine Dip Bedside Urine Glucose Negative Bedside Urine Bilirubin - Negative Bedside Urine Ketone - Negative Urine Specific [place] 1.010 Bedside Urine Occult Blood - Negative Bedside Urine pH 7.5 Bedside Urine Protein - Negative Bedside Urine Urobilinogen 0.2 mg/dl Bedside Urine Nitrite - Negative Bedside Urine Leukocytes - Negative Esterase Imaging Data Chest x-ray: Radiologist's Impresson: PROCEDURE:? XR CHEST 1V ? INDICATIONS:? eval fpr PNA ? TECHNIQUE:? One view of the chest was acquired.? ? COMPARISON:? [facility], CR, XR CHEST 2V, 06/03/2022, 15:23. ? FINDINGS:? ? Surgical changes and devices:? None.? ? Lungs and pleura:? Lungs are clear.? No pleural effusions or pneumothorax.? ? Mediastinum:? Mediastinal contours appear normal.? Heart size is normal.? ? Bones and chest wall:? No suspicious bony lesions.? Overlying soft tissues appear unremarkable.? ? IMPRESSION:? ? 1.? No acute cardiopulmonary disease. ECG Data Attestation: I personally reviewed and interpreted this ECG as follows: Interpretation: Sinus tachycardia Ventricular rate 139 Normal axis Normal QRS Normal QTC No ST T wave changes MDM Narrative Medical decision making narrative: Patient is tachycardic. Also has a leukocytosis in his tachypneic. No specific source of infection found. Chest x-ray shows no signs of pneumonia, has no abdominal pain, no urinary symptoms, no diarrhea, no neck pain, no sore throat, respiratory panel was still pending. Patient given antibiotics. Cultures obtained. Is not altered and not hypotensive so will hold on the 30 cc/kilogram of fluid. Given the lack of a definitive diagnosis and the lab abnormalities will admit for further evaluation and treatment. Discussed the case with Dr. Ibarra on-call for hospitalist who will admit. Discussed the need for admission with the patient. He expressed understanding and agreement. Discharge Plan Departure Patient Disposition: Home Clinical Impression: Leukocytosis, Tachycardia, Fever of unknown origin
[2022-07-09] MEDS: SODIUM CHLORIDE 0.9% 1,000 ML 1000 ML IV (22:50)
[2022-07-09 22:57] LABS: Add Manual Diff / Slide Review NO; Basophils Absolute Auto 0 /uL (0-100); Basophils Percent Auto 0.1 % (0-2); Eosinophils Absolute Auto 700 /uL (0-450); Eosinophils Percent Auto 2.5 % (2-4); Hematocrit 42.7 % (36-46); Hemoglobin 14.5 g/dL (12.0-16.0); Lymphocytes Absolute Auto 1300 /uL (1100-4500); Mean Corpuscular HGB Conc 33.9 % (30-36); Mean Corpuscular Volume 76.9 fL (80-100); Monocytes Absolute Auto 1200 /uL (0-900); Monocytes Percent Auto 4.5 % (3-14); Neutrophils Absolute Auto 22800 /uL (1500-7000); Neutrophils Percent Auto 87.9 % (50-75); Platelet Count 354 X10^3/uL (150-400); Red Blood Cell Count 5.55 X10^6/uL (4.0-5.2); Red Cell Distribution Width 14.9 % (11.6-14.8); White Blood Cell Count 25.9 X10^3/uL (4.5-11.0)
[2022-07-09 23:00] VITALS: BP 150/88; PULSE 140; RESP 24; O2SAT 99
[2022-07-09 23:04] LABS: Alanine Aminotransferase 40 IU/L (<35); Albumin 4.8 g/dL (3.5-5.0); Albumin Globulin Ratio 1.2 (1.0-2.8); Alkaline Phosphatase 137 U/L (38-126); Aspartate Aminotransferase 35 IU/L (14-36); BUN Creatinine Ratio 28.8 (6-22); Bilirubin Total 0.4 mg/dL (0.2-1.3); Blood Urea Nitrogen 23 mg/dL (7-17); Calcium 9.6 mg/dL (8.4-10.2); Carbon Dioxide 26 mmol/L (22-32); Chloride 100 mmol/L (98-107); Estimated Glomerular Filt Rate > 60 mL/min (>60); Globulin 3.9 g/dL (1.7-4.1); Glucose 135 mg/dL (70-100); HEMOLYSIS < 15 (0-50); Lipase 68 U/L (23-300); Sodium 137 mmol/L (137-145); Total Protein 8.7 g/dL (6.3-8.2)
[2022-07-09 23:05] LABS: Lactate (Lactic Acid) 1.9 mmol/L (0.7-2.1)
[2022-07-09 23:10] LABS: Pregnancy Test Serum,Qual Negative (Negative)
[2022-07-09] MEDS: cefTRIAXone 1,000 MG in SODIUM CHLORIDE 0.9% 100 ML 200 MG IV (23:11)
[2022-07-09 23:21] LABS: Procalcitonin 0.05 ng/mL (<0.5)
[2022-07-09 23:30] VITALS: BP 150/80; PULSE 134; RESP 21; O2SAT 97
[2022-07-09 23:50] VITALS: BP 169/86; PULSE 136; RESP 23; O2SAT 98
[2022-07-10] VITALS (20 sets, daily range): BP systolic 114–165; BP diastolic 60–105; PULSE 64–134; RESP 17–28; TEMP 35.6–38.2; O2SAT 94–99; BMI 41.6
[2022-07-10] MEDS: SODIUM CHLORIDE 0.9% 1,000 ML 1000 ML IV (00:03)
[2022-07-10 01:14] LABS: Adenovirus Not Detected (Not Detect); B. parapertussis Not Detected (Not Detecte); Bordetella pertussis Not Detected (Not Detecte); Chlamydophila pneumoniae Not Detected (Not Detect); Coronavirus 229E Not Detected (Not Detect); Coronavirus HKU1 Not Detected (Not Detect); Coronavirus NL 63 Not Detected (Not Detect); Coronavirus OC43 Not Detected (Not Detect); Human Metapneumovirus Not Detected (Not Detect); Human Rhinovirus/Enterovirus Not Detected (Not Detect); Influenza A Not Detected (Not Detect); Influenza B Not Detected (Not Detect); Mycoplasma pneumoniae Not Detected (Not Detect); Parainfluenza Virus 1 Not Detected (Not Detect); Parainfluenza Virus 2 Not Detected (Not Detect); Parainfluenza Virus 3 Not Detected (Not Detect); Parainfluenza Virus 4 Not Detected (Not Detect); Respiratory Syncytial Virus Not Detected (Not Detect); SARS- CoV-2 Not Detected (Not Detecte)
--- NOTE | 2022-07-10 01:28 | DI.CT.S_ITS ---
PROCEDURE: CT ANGIO CHEST PE PROTOCOL INDICATIONS: tachycardia, lupus anticoagulant+ TECHNIQUE: After the administration of intravenous contrast, 2 mm thick sections acquired from the pulmonary apices to the posterior costophrenic angles. 3-dimensional maximum intensity projection (MIP) coronal and sagittal reformats were then acquired through the thorax. For radiation dose reduction, the following was used: automated exposure control, adjustment of mA and/or kV according to patient size. COMPARISON: None. FINDINGS: Image quality: Excellent. Pulmonary arteries: Pulmonary arteries are normal in size, and demonstrate no intraluminal filling defects to suggest central pulmonary embolism. Lungs and pleura: Minimal subsegmental atelectasis, otherwise lungs are clear. No pleural effusions or pneumothorax. Central and peripheral airways are patent. Mediastinum: Heart size is normal, without pericardial effusion. No mediastinal or hilar adenopathy. Thoracic aorta is normal in caliber and enhancement. Esophagus is normal in caliber, without hiatal hernia. Bones and chest wall: No suspicious bony lesions. Ribs and thoracic spine appear intact throughout. Thyroid gland is normal. Prominent axillary lymph nodes bilaterally are symmetric and nonspecific. No supraclavicular, mediastinal, or hilar are lymph nodes. Abdomen: Visualized upper abdominal solid organs appear normal in the early arterial phase of enhancement. IMPRESSION: 1. No pulmonary embolism. 2. No acute abnormality of the chest. Comment: Final report is concordant with preliminary interpretation by [facility] Dictated by: Everardo Caldwell M.D. on 07/10/2022 at 9:15 Approved by: Everardo Caldwell M.D. on 07/10/2022 at 9:19
--- NOTE | 2022-07-10 01:29 | DI.CT.S_ITS ---
PROCEDURE: CT ABDOMEN PELVIS W CON INDICATIONS: fever, tachycardia, source unknown, hx renal infarct TECHNIQUE: After the administration of intravenous contrast, axial sections acquired from the lung bases to the pubic symphysis. Coronal and sagittal reformats were performed. For radiation dose reduction, the following was used: automated exposure control, adjustment of mA and/or kV according to patient size. COMPARISON: None. FINDINGS: Image quality: Excellent. Lung bases: Unremarkable. Heart: No significant findings. ABDOMEN: Liver: Unremarkable. Gallbladder: Unremarkable. Biliary ducts: Unremarkable. Pancreas: Unremarkable. Spleen: Unremarkable. Adrenal Glands: Unremarkable. Kidneys and Ureters: Unremarkable. Stomach and Bowel: Stomach, small bowel loops, and colon are unremarkable. Peritoneum: No abnormal intraperitoneal fluid. No free air. Ventral Wall: No hernias. Abdominal Nodes: No retroperitoneal or mesenteric adenopathy by size criteria. Vessels: Aorta and inferior vena cava are normal in size. PELVIS: Pelvic Organs: Status post cholecystectomy. Bladder: Unremarkable. Pelvic Nodes: No enlarged lymph nodes. Miscellaneous: No hernias are seen. Bones: Unremarkable. IMPRESSION: No acute abnormality of the abdomen or pelvis. Dictated by: Everardo Caldwell M.D. on 07/10/2022 at 9:21 Approved by: Everardo Caldwell M.D. on 07/10/2022 at 9:22
[2022-07-10] MEDS: MORPHINE 2 MG/ML INJ IV ×2 (02:12→06:42)
[2022-07-10] MEDS: SODIUM CHLORIDE 0.9% 1,000 ML 100 ML IV ×2 (02:12→23:11)
[2022-07-10] MEDS: AZITHROMYCIN 500 MG in DEXTROSE 5% IN WATER 250 ML 250 MG IV (03:10)
--- NOTE | 2022-07-10 03:42 | PM.HP.1 ---
History of Present Illness History of Present Illness Date Patient Seen: 07/10/22 Time Patient Seen: 01:00 Chief complaint: states is septic Narrative: Eric Byrd is a 32M (assigned sex at : female) with PMH asthma, eczema, positive lupus anticoagulant with history of renal infarction who presents to the hospital with fever and left sided pain. Had been in normal state of health until suddenly today started feeling much worse. He has noted leg pain. Has noted left sided lower chest and abdominal pain that is worsened with deep breath. Also has left sided flank, back pain. Has had no cough. No vomiting, nausea, diarrhea. No dysuria. Had a mild headache yesterday, but this is now gone. No confusion. Patient's family is here and notes no sick contacts. He has not missed any prior anticoagulation. Has felt similar to this prior when he was admitted to [facility] in 2020 and diagnosed with sepsis and renal infarction. In the ED workup was done, vitals notable for afebrile, heart rate 140s, respiratory rate 20s, blood pressure 140s/100s, sats 99% on room air. Labs reviewed by me and notable for WBC 25.9, hgb 14.5, plts 354. Na 137, BUN 23, creatinine 0.80. Lactate 1.9. AST/ALT 35/40. Alk phos 137. Procal 0.05. UA negative for nitrites, leuk esterase. Cultures ordered. Chest xray reviewed by me and not acute process. CTA chest with no PE. CT abdomen/pelvis with no acute process. He was ordered for IV fluid and antibiotics and admitted for further treatment. [facility] Medical History ADHD Allergies Anemia Anxiety Asthma Chicken pox Chronic anticoagulation Depression Eczema Irritable bowel syndrome (~2012) Renal infarction (~2020) Scoliosis Seasonal allergies Surgical History Anesthesia History of hysterectomy (~12/2019) Transgender with history of gender affirmation surgery Family History Father History of heart disease Hypertension Mother Diabetes mellitus Mental health problem Stroke Sister Mental health problem Sister Mental health problem Grandmother Cancer Grandmother Alzheimer's disease Social History household members: spouse Smoking Status: Never smoker alcohol intake: never Meds Home Medications and Allergies Home Medications Medication Instructions Recorded Confirmed Type albuterol sulfate 1.25 mg/3 mL 1.25 mg inhalation QID PRN Wheezing 10/25/21 07/10/22 History solution for nebulization albuterol sulfate 90 mcg/actuation 2 puff inhalation Q6H PRN Wheezing 10/25/21 07/10/22 History aerosol inhaler calcium citrate 200 mg (950 mg) 200 mg PO DAILY 10/25/21 07/10/22 History tablet cetirizine 10 mg capsule (Zyrtec) 10 mg PO DAILY 10/25/21 07/10/22 History ferrous gluconate 225 mg (27 mg 225 mg PO DAILY 10/25/21 07/10/22 History iron) tablet (Fergon) fluticasone propionate 50 1 spray intranasal DAILY 10/25/21 07/10/22 History mcg/actuation nasal spray,suspension montelukast 10 mg tablet 10 mg PO DAILY 10/25/21 07/10/22 History (Singulair) multivitamin 1 tab PO DAILY 10/25/21 07/10/22 History testosterone 1.62 % (20.25 mg/1.25 1 packet topical DAILY #37.5 grams 06/30/22 07/10/22 Rx gram) transdermal gel packet apixaban 5 mg tablet (Eliquis) 5 mg PO BID 07/10/22 07/10/22 History fluticasone propionate 115 2 puff inhalation DAILY 07/10/22 07/10/22 History mcg-salmeterol 21 mcg/actuation HFA inhaler (Advair HFA) triamcinolone acetonide 0.1 % 1 applic topical DAILY PRN eczema 07/10/22 07/10/22 History lotion flair Allergies Allergy/AdvReac Type Severity Reaction Status Date / Time peanut Allergy Severe Anaphylaxis Verified 07/10/22 03:25 Review of Systems Review of Systems Narrative: 14 systems reviewed and negative aside from what is noted in HPI Exam Vital Signs (past 8 hours): - 07/09/22 22:27 07/09/22 22:43 07/09/22 23:00 Temperature 98.6 F Pulse Rate 145 H 136 H Respiratory Rate 28 H 26 H Blood Pressure 145/100 H 150/88 H Pulse Oximetry 99 98 Oxygen Delivery Method Room Air Room Air 07/09/22 23:00 07/09/22 23:30 07/09/22 23:30 Temperature Pulse Rate 140 H 134 H Respiratory Rate 24 21 Blood Pressure 150/80 H Pulse Oximetry 99 97 Oxygen Delivery Method Room Air 07/09/22 23:50 07/09/22 23:50 07/10/22 00:00 Temperature Pulse Rate 136 H Respiratory Rate 23 Blood Pressure 169/86 H 165/85 H Pulse Oximetry 98 Oxygen Delivery Method 07/10/22 00:00 07/10/22 00:30 07/10/22 00:30 Temperature Pulse Rate 134 H 129 H Respiratory Rate 23 24 Blood Pressure 161/82 H Pulse Oximetry 97 98 Oxygen Delivery Method 07/10/22 01:00 07/10/22 01:00 07/10/22 01:30 Temperature 98.5 F Pulse Rate 123 H 122 H Respiratory Rate 23 28 H Blood Pressure 145/73 H Pulse Oximetry 98 99 Oxygen Delivery Method 07/10/22 02:10 07/10/22 02:11 07/10/22 02:11 Temperature Pulse Rate 128 H 126 H Respiratory Rate 20 Blood Pressure 151/91 H Pulse Oximetry 96 99 Oxygen Delivery Method 07/10/22 02:30 07/10/22 02:30 Temperature Pulse Rate 122 H Respiratory Rate 20 Blood Pressure 154/82 H Pulse Oximetry 97 Oxygen Delivery Method Oxygen Delivery Method Room Air Narrative Exam Narrative: GEN: appears uncomfortable in mild distress HEENT: moist mucous membnranes, PERRL NECK: trachea midline, no JVD PULM: clear bilaterally CV: tachycardic, with no murmurs ABD: soft, nontender, nondistended, no organomegaly EXT: warm and well perfused with no edema NEURO: awake, alert, oriented, with no focal deficits Objective Labs 07/09/22 22:43 07/09/22 22:43 Labs: Laboratory Results - last 24 hr 07/09/22 07/09/22 07/09/22 22:43 22:43 22:43 WBC 25.9 H RBC 5.55 H Hgb 14.5 Hct 42.7 MCV 76.9 L MCH 26.0 MCHC 33.9 RDW 14.9 H Plt Count 354 Neut % (Auto) 87.9 H Lymph % (Auto) 5.0 L [place] % (Auto) 4.5 Eos % (Auto) 2.5 Baso % (Auto) 0.1 Neut # (Auto) 69024 H Lymph # (Auto) 1300 [place] # (Auto) 1200 H Eos # (Auto) 700 H Baso # (Auto) 0 Sodium 137 Potassium 4.0 Chloride 100 Carbon Dioxide 26 BUN 23 H Creatinine 0.80 Estimated GFR > 60 BUN/Creatinine Ratio 28.8 H Glucose 135 H Lactate 1.9 Calcium 9.6 Total Bilirubin 0.4 AST 35 ALT 40 H Alkaline Phosphatase 137 H Total Protein 8.7 H Albumin 4.8 Globulin 3.9 Albumin/Globulin Ratio 1.2 Lipase 68 Procalcitonin 0.05 Serum , Qual Chlamy pneumoniae PCR Adenovirus (PCR) B. pertussis DNA (PCR) B.parapertussis DNA PCR Coronavirus OC43 (PCR) Coronavirus HKU1 (PCR) Coronavirus 229E (PCR) SARS-CoV-2 (PCR) Coronavirus NL63 (PCR) Human Metapneumovir PCR Influenza Type A (PCR) Influenza Type B (PCR) M. pneumoniae (PCR) Parainfluenza 1 (PCR) Parainfluenza 2 (PCR) Parainfluenza 3 (PCR) Parainfluenza 4 (PCR) RSV (PCR) Entero/Rhino (PCR) 07/09/22 07/10/22 22:43 00:01 WBC RBC Hgb Hct MCV MCH MCHC RDW Plt Count Neut % (Auto) Lymph % (Auto) [place] % (Auto) Eos % (Auto) Baso % (Auto) Neut # (Auto) Lymph # (Auto) [place] # (Auto) Eos # (Auto) Baso # (Auto) Sodium Potassium Chloride Carbon Dioxide BUN Creatinine Estimated GFR BUN/Creatinine Ratio Glucose Lactate Calcium Total Bilirubin AST ALT Alkaline Phosphatase Total Protein Albumin Globulin Albumin/Globulin Ratio Lipase Procalcitonin Serum , Qual Negative Chlamy pneumoniae PCR Not detected Adenovirus (PCR) Not detected B. pertussis DNA (PCR) Not detected B.parapertussis DNA PCR Not detected Coronavirus OC43 (PCR) Not detected Coronavirus HKU1 (PCR) Not detected Coronavirus 229E (PCR) Not detected SARS-CoV-2 (PCR) Not detected Coronavirus NL63 (PCR) Not detected Human Metapneumovir PCR Not detected Influenza Type A (PCR) Not detected Influenza Type B (PCR) Not detected M. pneumoniae (PCR) Not detected Parainfluenza 1 (PCR) Not detected Parainfluenza 2 (PCR) Not detected Parainfluenza 3 (PCR) Not detected Parainfluenza 4 (PCR) Not detected RSV (PCR) Not detected Entero/Rhino (PCR) Not detected Assessment & Plan Assessment & Plan narrative: 1. SIRS positive -presented with measured fever at home, also with tachycardia, tachypnea and leukocytosis -symptoms include leg pain, pleuritic chest/abdominal pain, and left flank pain -UA unremarkable -chest xray negative for pneumonia -CTA chest negative for PE or other acute process -CT abdomen/pelvis with contrast shows no acute process, ordered given history of infarction and lupus anticoagulant to evaluate for infection or thrombosis -respiratory panel negative -blood, urine cultures pending -IV fluids initiially ordered, started on broad spectrum antibiotics with vanco/zosyn -order troponin to rule ?myocarditis -no headache or nucal rigiditiy or confusion, so think unlikely meningitis/encephalitis -possibly has a viral infection, but symptoms are not consistent with this -has history of eczema, but I did not see clear evidence of cellulitis on exam 2. 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 Asthma, not in exacerbation -prn nebs 4. Transgender care -continue testosterone I have discussed plan and obtained history from patient and family at bedside. I have discussed plan of care with ED physician and bedside nurse. I have reviewed labs, imaging, and medical notes CODE: Full Proxy: Frank Byrd, Quality [facility] - Meds 'Current medications' to include all prescriptions, [id number] products, herbals, cannabis/cannabidiol products, and vitamin/mineral/dietary (nutritional) supplements. I have utilized all available resources to obtain, update, or review the patient?s current medications. [If Yes, STOP here]: Yes
[2022-07-10 03:54] LABS: Troponin I < 0.012 ng/mL (0.01-0.034)
[2022-07-10] MEDS: VANCOMYCIN 2,000 MG/400 ML PIGGYBACK 200 MG IV (04:21)
[2022-07-10 05:17] LABS: MRSA (Nasal) PCR Not Detected (Not Detect)
[2022-07-10 06:00] LABS: Add Manual Diff / Slide Review NO; Basophils Absolute Auto 100 /uL (0-100); Basophils Percent Auto 0.4 % (0-2); Eosinophils Absolute Auto 200 /uL (0-450); Eosinophils Percent Auto 0.9 % (2-4); Hematocrit 42.9 % (36-46); Hemoglobin 14.4 g/dL (12.0-16.0); Lymphocytes Absolute Auto 1700 /uL (1100-4500); Mean Corpuscular HGB Conc 33.5 % (30-36); Mean Corpuscular Hemoglobin 26.1 PG (26-34); Mean Corpuscular Volume 77.7 fL (80-100); Monocytes Absolute Auto 1300 /uL (0-900); Monocytes Percent Auto 5.4 % (3-14); Neutrophils Absolute Auto 20500 /uL (1500-7000); Neutrophils Percent Auto 86.3 % (50-75); Platelet Count 312 X10^3/uL (150-400); Red Blood Cell Count 5.52 X10^6/uL (4.0-5.2); Red Cell Distribution Width 14.5 % (11.6-14.8); White Blood Cell Count 23.7 X10^3/uL (4.5-11.0)
[2022-07-10 06:05] LABS: Alanine Aminotransferase 31 IU/L (<35); Albumin 3.9 g/dL (3.5-5.0); Albumin Globulin Ratio 1.2 (1.0-2.8); Alkaline Phosphatase 94 U/L (38-126); Aspartate Aminotransferase 27 IU/L (14-36); Bilirubin Total 0.3 mg/dL (0.2-1.3); Blood Urea Nitrogen 15 mg/dL (7-17); Calcium 8.4 mg/dL (8.4-10.2); Carbon Dioxide 25 mmol/L (22-32); Chloride 105 mmol/L (98-107); Estimated Glomerular Filt Rate > 60 mL/min (>60); Globulin 3.3 g/dL (1.7-4.1); Glucose 90 mg/dL (70-100); HEMOLYSIS < 15 (0-50); Potassium 3.9 mmol/L (3.4-5.1); Sodium 138 mmol/L (137-145); Total Protein 7.2 g/dL (6.3-8.2)
[2022-07-10 06:17] LABS: Troponin I < 0.012 ng/mL (0.01-0.034)
[2022-07-10] MEDS: APIXABAN 5 MG TABLET PO ×2 (09:09→21:40)
[2022-07-10] MEDS: ACETAMINOPHEN 325 MG TABLET 650 MG PO ×2 (09:09→16:23)
[2022-07-10] MEDS: PIPERACILLIN/TAZO 3.375 GM in SODIUM CHLORIDE 0.9% 100 ML IV ×2 (09:11→21:48)
--- NOTE | 2022-07-10 09:39 | CM.DANOTE ---
Patient is a 32 yo transgendered male who was admitted on 07/10/22 for inflammatory response. Pt has [employer] for insurance and his PCP is Dr. Ochoa Owens. EMR was reviewed. Per MD, pt with hx of asthma, lupus and admitted for SIRS+ and to get IV fluids and abx. SW met bedside with pt and explained role and he confirms he lives at home in [place] with his and is active and independent at baseline and works and drives and does not use DME. Pt denies any hx of HH or SNF and has not been admitted to a hospital other than a couple years ago for sepsis. Pt's lupus is pretty well managed at baseline. Pt does not anticipate any needs at d/c and states can transport and works from home so available for assist at d/c if needed. Pt may need an Excuse for Work letter for employer at d/c. Plan: SW to follow closely for plan of d/c home when medically stable via spouse POV and any further identified discharge planning needs. MARIO Watts Discharge Planning/Care Management CM Discharge Assessment Start: 07/10/22 09:35 Freq: Status: Active Protocol: Document 07/10/22 09:35 BF (Rec: 07/10/22 09:39 BF [id number]) Discharge Planning Assessment Assigned Emr Analyst MARIO Young DPOA/Assigned Designee Name informally Frank Contact Information [phone] Advance Directives? No Advance Directives on File No History Provided By Patient,Medical Record Has Patient been admitted in last 30 No days? Prior Living Arrangements House Household Members spouse Type of transporation used prior to Drives own vehicle admit Independent with ADL's Yes Is patient alert and oriented? Yes Caregiver for Another No Barriers to Discharge No Discharge Plan Home Transportation Arrangement to transport at d/c Referrals Initiated None needed Whiteboard Updated in Patient Room with Yes name and ext. # of Emr Analyst Review Status In Process Please Provide Date Initial DC 07/10/22 Assessment Was Performed Next Review Type Continued Stay Review
[2022-07-10] MEDS: TRIAMCINOLONE 0.1% CREAM 15 GM 1 APPLIC TOP (12:34)
[2022-07-10] MEDS: IBUPROFEN 400 MG TABLET 800 MG PO ×2 (13:19→21:40)
[2022-07-10] MEDS: VANCOMYCIN 1,250 MG/250 ML PIGGYBACK 125 MG IV (18:07)
[2022-07-10] MEDS: MONTELUKAST 10 MG TABLET PO (23:10)
[2022-07-10] MEDS: LORATADINE 10 MG TABLET PO (23:10)
[2022-07-11] VITALS (8 sets, daily range): BP systolic 125–141; BP diastolic 75–87; PULSE 72–87; RESP 16–18; TEMP 35.6–36.5; O2SAT 96–100
[2022-07-11] MEDS: AZITHROMYCIN 500 MG in DEXTROSE 5% IN WATER 250 ML 250 MG IV (02:37)
[2022-07-11 06:13] LABS: Add Manual Diff / Slide Review NO; Basophils Absolute Auto 100 /uL (0-100); Basophils Percent Auto 0.6 % (0-2); Eosinophils Absolute Auto 800 /uL (0-450); Eosinophils Percent Auto 8.2 % (2-4); Hematocrit 41.4 % (36-46); Hemoglobin 13.8 g/dL (12.0-16.0); Lymphocytes Absolute Auto 1700 /uL (1100-4500); Lymphocytes Percent Auto 16.7 % (25-40); Mean Corpuscular HGB Conc 33.4 % (30-36); Mean Corpuscular Hemoglobin 26.2 PG (26-34); Mean Corpuscular Volume 78.6 fL (80-100); Monocytes Absolute Auto 900 /uL (0-900); Monocytes Percent Auto 9.2 % (3-14); Neutrophils Absolute Auto 6700 /uL (1500-7000); Neutrophils Percent Auto 65.3 % (50-75); Platelet Count 282 X10^3/uL (150-400); Red Blood Cell Count 5.27 X10^6/uL (4.0-5.2); Red Cell Distribution Width 15.2 % (11.6-14.8); White Blood Cell Count 10.2 X10^3/uL (4.5-11.0)
[2022-07-11] MEDS: IBUPROFEN 400 MG TABLET 800 MG PO (06:30)
[2022-07-11 06:31] LABS: BUN Creatinine Ratio 18.3 (6-22); Blood Urea Nitrogen 11 mg/dL (7-17); Calcium 8.6 mg/dL (8.4-10.2); Carbon Dioxide 23 mmol/L (22-32); Chloride 108 mmol/L (98-107); Estimated Glomerular Filt Rate > 60 mL/min (>60); Glucose 87 mg/dL (70-100); HEMOLYSIS < 15 (0-50); Potassium 4.1 mmol/L (3.4-5.1); Sodium 140 mmol/L (137-145)
[2022-07-11 06:35] LABS: Erythrocyte Sedimentation Rate 25 MM/HR (0-20)
[2022-07-11 06:46] LABS: C-Reactive Protein Quant 7.3 mg/dL (<1.0); Lactate Dehydrogenase 287 U/L (120-246)
[2022-07-11] MEDS: VANCOMYCIN 1,250 MG/250 ML PIGGYBACK 125 MG IV ×2 (07:03→19:33)
[2022-07-11 07:28] LABS: Ferritin 149 ng/mL (6-137)
--- NOTE | 2022-07-11 07:43 | PC.NURSE ---
Unable to place 2nd IV for concurrent ABX therapy after 2 attempts. Pt tolerated poorly and kindly declined further attempts.
[2022-07-11] MEDS: APIXABAN 5 MG TABLET PO ×2 (08:32→20:30)
[2022-07-11] MEDS: TRIAMCINOLONE 0.1% CREAM 15 GM 1 APPLIC TOP (08:34)
[2022-07-11 08:57] LABS: Hepatitis B Surface Antigen NEGATIVE s/c (NEGATIVE)
[2022-07-11 09:13] LABS: HIV 1 & 2 Ab/Ag 4th Gen Combo NEGATIVE (NEGATIVE); Hep C Virus Ab w/Reflex Quant NEGATIVE s/c (NEGATIVE)
[2022-07-11] MEDS: PIPERACILLIN/TAZO 3.375 GM in SODIUM CHLORIDE 0.9% 100 ML IV (09:17)
[2022-07-11] MEDS: SODIUM CHLORIDE 0.9% 1,000 ML 100 ML IV (09:20)
--- NOTE | 2022-07-11 13:34 | PM.PN.1 ---
Subjective Subjective Interval history: 32 male admitted with unexplained fevers, chest pain. Pain resolved after starting ibuprofen given classical presentation for pericarditis, recent parainfluenza a few months ago. Started on colchicine for presumed pericarditis. Last fever was yesterday AM, leukocytosis now normal. Rash is tender, but not pleuritic. Exam Vital Signs (past 8 hours): - 07/11/22 07:45 07/11/22 07:00 07/11/22 10:50 Temperature 97.4 F L 97.2 F L Pulse Rate 83 87 Respiratory Rate 18 18 Blood Pressure 139/86 136/87 Pulse Oximetry 100 100 100 Oxygen Delivery Method Room Air Oxygen Flow Rate 0 0 0 07/11/22 11:00 Temperature Pulse Rate Respiratory Rate Blood Pressure Pulse Oximetry 100 Oxygen Delivery Method Room Air Oxygen Flow Rate 0 Oxygen Delivery Method Room Air Oxygen Flow Rate 0 Narrative Exam Narrative: GEN: no acute distress HEENT: moist mucous membnranes, PERRL NECK: trachea midline, no JVD PULM: clear bilaterally CV: RRR with no murmurs ABD: soft, nontender, nondistended, no organomegaly EXT: warm and well perfused with no edema Skin: large pink/purple macula over Left frontal abdomen, about 10 cm in height, wraps from beyond midline to left midaxillary line laterally. Lightened color today. NEURO: awake, alert, oriented, with no focal deficits Objective Labs 07/11/22 05:38 07/11/22 05:38 Labs: Laboratory Results - last 24 hr 07/11/22 07/11/22 07/11/22 05:38 05:38 05:38 WBC RBC Hgb Hct MCV MCH MCHC RDW Plt Count Neut % (Auto) Lymph % (Auto) [place] % (Auto) Eos % (Auto) Baso % (Auto) Neut # (Auto) Lymph # (Auto) [place] # (Auto) Eos # (Auto) Baso # (Auto) ESR 25 H Sodium Potassium Chloride Carbon Dioxide BUN Creatinine Estimated GFR BUN/Creatinine Ratio Glucose Calcium Ferritin 149 H Lactate Dehydrogenase 287 H C-Reactive Protein 7.3 H Rheumatoid Factor Hep Bs Antigen Hepatitis C Antibody HIV 1&2 Ab/P24 Ag 4thGn 07/11/22 07/11/22 07/11/22 05:38 05:38 05:38 WBC 10.2 D RBC 5.27 H Hgb 13.8 Hct 41.4 MCV 78.6 L MCH 26.2 MCHC 33.4 RDW 15.2 H Plt Count 282 Neut % (Auto) 65.3 D Lymph % (Auto) 16.7 L [place] % (Auto) 9.2 Eos % (Auto) 8.2 H Baso % (Auto) 0.6 Neut # (Auto) 6700 Lymph # (Auto) 1700 [place] # (Auto) 900 Eos # (Auto) 800 H Baso # (Auto) 100 ESR Sodium Potassium Chloride Carbon Dioxide BUN Creatinine Estimated GFR BUN/Creatinine Ratio Glucose Calcium Ferritin Lactate Dehydrogenase C-Reactive Protein Rheumatoid Factor 12.0 Hep Bs Antigen Negative Hepatitis C Antibody Negative HIV 1&2 Ab/P24 Ag 4thGn Negative 07/11/22 05:38 WBC RBC Hgb Hct MCV MCH MCHC RDW Plt Count Neut % (Auto) Lymph % (Auto) [place] % (Auto) Eos % (Auto) Baso % (Auto) Neut # (Auto) Lymph # (Auto) [place] # (Auto) Eos # (Auto) Baso # (Auto) ESR Sodium 140 Potassium 4.1 Chloride 108 H Carbon Dioxide 23 BUN 11 Creatinine 0.60 Estimated GFR > 60 BUN/Creatinine Ratio 18.3 Glucose 87 Calcium 8.6 Ferritin Lactate Dehydrogenase C-Reactive Protein Rheumatoid Factor Hep Bs Antigen Hepatitis C Antibody HIV 1&2 Ab/P24 Ag 4thGn [facility] Medical History (Updated 07/10/22 @ 03:52 by Solo Ibarra MD) ADHD Allergies Anemia Anxiety Asthma Chicken pox Chronic anticoagulation Depression Eczema Irritable bowel syndrome (~2012) Renal infarction (~2020) Scoliosis Seasonal allergies Surgical History Anesthesia History of hysterectomy (~12/2019) Transgender with history of gender affirmation surgery Family History Father History of heart disease Hypertension Mother Diabetes mellitus Mental health problem Stroke Sister Mental health problem Sister Mental health problem Grandmother Cancer Grandmother Alzheimer's disease Social History household members: spouse Smoking Status: Never smoker alcohol intake: never Assessment & Plan Assessment & Plan narrative: 1. Pericarditis, fever, and rash -presented with measured fever at home, also with tachycardia, tachypnea and leukocytosis. Leukocytosis has now resolved -symptoms include leg pain, pleuritic chest/abdominal pain, and left flank pain -UA unremarkable -chest xray negative for pneumonia -CTA chest negative for PE or other acute process -CT abdomen/pelvis with contrast shows no acute process, ordered given history of infarction and lupus anticoagulant to evaluate for infection or thrombosis -respiratory panel negative -blood, urine cultures negative thus far. -IV fluids initiially ordered, started on broad spectrum antibiotics with vanco/zosyn. Will stop and narrow to augmentin given negative cultures and improvement for possible bacterial infection, though consider cessation given likely pericarditis. -suspect pericarditis with improvement with NSAIDs and para-influenza infection a few months ago. Will stop NSAID given apixaban. Consider steroids if recurs. Cannot explain rash at this time. Continue colchicine for 90 days to prevent recurrence. -ESR CRP mildly elevated. ferritin just above normal (not consistent with AOSD), RF 12, LDH 287. CAIO pending but has previously been negative. HIV negative. Hepatitis B and C negative. -no headache or nucal rigiditiy or confusion, so think unlikely meningitis/encephalitis 2. 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 Asthma, not in exacerbation -prn nebs 4. Transgender care -continue testosterone I have discussed plan and obtained history from patient and family at bedside. I have discussed plan of care with ED physician and bedside nurse. I have reviewed labs, imaging, and medical notes CODE: Full Proxy: Frank Byrd,
[2022-07-11] MEDS: MONTELUKAST 10 MG TABLET PO (16:15)
[2022-07-11] MEDS: TESTOSTERONE 1 EACH TOP (16:17)
[2022-07-11 19:22] LABS: Vancomycin Trough 7.4 ug/mL (10-20)
[2022-07-11] MEDS: VANCOMYCIN TROUGH 1 REQUEST MISC (19:33)
[2022-07-11] MEDS: LORATADINE 10 MG TABLET PO (20:30)
[2022-07-11] MEDS: COLCHICINE 0.6 MG TABLET PO (20:30)
[2022-07-11] MEDS: AMOXICILLIN/CLAV 875/125 MG 1 TAB PO (20:30)
[2022-07-12 01:15] VITALS: BP 144/91; PULSE 81; RESP 18; TEMP 36.4; O2SAT 98
[2022-07-12] MEDS: AZITHROMYCIN 500 MG in DEXTROSE 5% IN WATER 250 ML 250 MG IV (01:54)
[2022-07-12 04:49] VITALS: BP 131/93; PULSE 78; RESP 17; TEMP 36.3; O2SAT 95
[2022-07-12 05:00] VITALS: O2SAT 95
[2022-07-12 06:18] LABS: Add Manual Diff / Slide Review NO; Basophils Absolute Auto 100 /uL (0-100); Basophils Percent Auto 0.5 % (0-2); Eosinophils Absolute Auto 900 /uL (0-450); Eosinophils Percent Auto 7.7 % (2-4); Hemoglobin 13.4 g/dL (12.0-16.0); Lymphocytes Absolute Auto 1900 /uL (1100-4500); Lymphocytes Percent Auto 17.3 % (25-40); Mean Corpuscular HGB Conc 32.7 % (30-36); Mean Corpuscular Hemoglobin 25.5 PG (26-34); Mean Corpuscular Volume 78.1 fL (80-100); Monocytes Absolute Auto 1000 /uL (0-900); Monocytes Percent Auto 8.7 % (3-14); Neutrophils Absolute Auto 7300 /uL (1500-7000); Neutrophils Percent Auto 65.8 % (50-75); Platelet Count 318 X10^3/uL (150-400); Red Blood Cell Count 5.25 X10^6/uL (4.0-5.2); Red Cell Distribution Width 14.9 % (11.6-14.8); White Blood Cell Count 11.2 X10^3/uL (4.5-11.0)
[2022-07-12] MEDS: VANCOMYCIN 1,250 MG/250 ML PIGGYBACK 125 MG IV (06:34)
[2022-07-12 06:40] LABS: BUN Creatinine Ratio 15.6 (6-22); Blood Urea Nitrogen 10 mg/dL (7-17); Calcium 8.8 mg/dL (8.4-10.2); Carbon Dioxide 24 mmol/L (22-32); Chloride 108 mmol/L (98-107); Estimated Glomerular Filt Rate > 60 mL/min (>60); Glucose 86 mg/dL (70-100); HEMOLYSIS < 15 (0-50); Potassium 3.8 mmol/L (3.4-5.1); Sodium 140 mmol/L (137-145)
[2022-07-12 08:00] VITALS: BP 127/82; PULSE 83; RESP 17; TEMP 36.4; O2SAT 100
[2022-07-12 09:00] VITALS: O2SAT 95
[2022-07-12] MEDS: AMOXICILLIN/CLAV 875/125 MG 1 TAB PO (09:34)
[2022-07-12] MEDS: COLCHICINE 0.6 MG TABLET PO (09:34)
[2022-07-12] MEDS: APIXABAN 5 MG TABLET PO (09:34)
[2022-07-12] MEDS: TESTOSTERONE 1 EACH TOP (09:36)
--- NOTE | 2022-07-12 11:19 | PC.NURSE ---
Addendum entered by Marycarmen Golden R.N. 07/12/22 11:44: pt's own med (testosterone gel - a box of this was returned to patient at time of d/c home.) aprox 1215pm Original Note: patient is a/o, voices needs. denies pain/discomfort. meds given per order. requesting if MD will d/c home today. patient states ready for dc. see d/c summary.
--- NOTE | 2022-07-12 16:21 | P.DS_ITS ---
History of Present Illness History of Present Illness Chief complaint: states is septic Narrative: Per history and physical: Eric Byrd is a 32M (assigned sex at : female) with PMH asthma, eczema, positive lupus anticoagulant with history of renal infarction who presents to the hospital with fever and left sided pain. Had been in normal state of health until suddenly today started feeling much worse. He has noted leg pain. Has noted left sided lower chest and abdominal pain that is worsened with deep b reath. Also has left sided flank, back pain. Has had no cough. No vomiting, nausea, diarrhea. No dysuria. Had a mild headache yesterday, but this is now gone. No confusion. Patient's family is here and notes no sick contacts. He has not missed any prior anticoagulation. Has felt similar to this prior when he was admitted to [facility] in 2020 and diagnosed with sepsis and renal infarction. In the ED workup was done, vitals notable for afebrile, heart rate 140s, respiratory rate 20s, blood pressure 140s/100s, sats 99% on room air. Labs reviewed by me and notable for WBC 25.9, hgb 14.5, plts 354. Na 137, BUN 23, creatinine 0.80. Lactate 1.9. AST/ALT 35/40. Alk phos 137. Procal 0.05. UA negative for nitrites, leuk esterase. Cultures ordered. Chest xray reviewed by me and not acute process. CTA chest with no PE. CT abdomen/pelvis with no acute process. He was ordered for IV fluid and antibiotics and admitted for further treatment. Discharge Providers Provider Date of admission: 07/10/22 00:33 Discharge Date: 07/12/22 Primary care physician: Ochoa Owens MD Discharge provider: Tracie Mayo MD Summary Hospital Course Discharge Diagnosis: 1. Presumed pericarditis, likely viral though autoimmune can not be ruled out 2. Rash, suspect shingles, improving 3. Lupus anticoagulant, chronically anticoagulated with Eliquis 4. History of renal infarction 5. Asthma, no exacerbation 6. Atopic dermatitis 7. Transgender male, on hormone replacement therapy Hospital Course: Patient was admitted with fever, tachycardia, tachypnea, leukocytosis, and pleuritic chest pain. Chest x-ray was negative for pneumonia. No evidence of pulmonary embolus. UA unremarkable. Patient was placed on IV fluids and emp iric antibiotics. Ultimately, symptoms improved with ibuprofen, increasing clinical suspicion for pericarditis. Patient did have a metapneumovirus infection a couple of months ago. Is felt that it is possible this triggered the pericarditis. Another possibility is patient had another virus more recently that led to pericarditis symptoms. Furthermore, rheumatologic etiology is also considered in the backdrop of his lupus anticoagulant positivity. Due to anticoagulation with Eliquis, ibuprofen was discontinued and the patient was placed on colchicine with good results. By the date of discharge, chest pain, tachypnea, tachycardia had fully resolved. Patient had a mild leukocytosis with eosinophilia, but has known significant atopic for which he is following up with an senior maintenance mechanic in the coming weeks. Upon further evaluation of the patient's rash, it does appear to be dermatomal in nature. There is prior history of the rash occurring in exact same 2 years ago when he was admitted with sepsis, raising the likelihood of this being a shingles recurrence. Although we discussed the Valtrex, it was contraindicated in this situation as the symptoms have been present for longer than 72 hours. I did discharge him home with a prescription for Valtrex to use for future occurrences. Patient felt he was back to his baseline on the date of discharge. Vital signs were stable. Greater than 30 minutes were spent in educating the patient and his spouse in regard to the above diagnoses and recommendations. He is discharged in stable condition. Status at Discharge Overall status at discharge: patient is progressing back to baseline Time Spent with Patient Time spent: Greater than 30 minutes (Approximately 45 minutes spent in education and coordinating discharge) Exam Vital Signs (past 8 hours): - 07/12/22 09:00 Pulse Oximetry 95 Oxygen Delivery Method Room Air Oxygen Delivery Method Room Air Oxygen Flow Rate 0 Narrative Exam Narrative: GEN: Alert and oriented x 3, NAD HEENT:NC, Face symmetric CHEST: Respiratory excursions symmetric, CTAB CV: RRR, no M/R/G ABD: Soft, NT/ND, BT present in all 4 quadrants, no organomegaly or masses EXTR: warm, well perfused, no C/C/E SKIN: warm and dry, dermatomal rash to left mid and lateral abdomen, eczema noted to BUE's and BLE's NEURO: Alert and oriented x 3, nonfocal Objective Labs 07/12/22 05:52 07/12/22 05:52 Labs: Laboratory Results - last 24 hr 07/11/22 07/11/22 07/12/22 18:40 22:59 05:52 WBC 11.2 H RBC 5.25 H Hgb 13.4 Hct 41.0 MCV 78.1 L MCH 25.5 L MCHC 32.7 RDW 14.9 H Plt Count 318 Neut % (Auto) 65.8 Lymph % (Auto) 17.3 L Patrick % (Auto) 8.7 Eos % (Auto) 7.7 H Baso % (Auto) 0.5 Neut # (Auto) 7300 H Lymph # (Auto) 1900 [place] # (Auto) 1000 H Eos # (Auto) 900 H Baso # (Auto) 100 Sodium Potassium Chloride Carbon Dioxide BUN Creatinine Estimated GFR BUN/Creatinine Ratio Glucose Calcium Vancomycin Peak 27.0 Vancomycin Trough 7.4 L 07/12/22 05:52 WBC RBC Hgb Hct MCV MCH MCHC RDW Plt Count Neut % (Auto) Lymph % (Auto) [place] % (Auto) Eos % (Auto) Baso % (Auto) Neut # (Auto) Lymph # (Auto) [place] # (Auto) Eos # (Auto) Baso # (Auto) Sodium 140 Potassium 3.8 Chloride 108 H Carbon Dioxide 24 BUN 10 Creatinine 0.64 Estimated GFR > 60 BUN/Creatinine Ratio 15.6 Glucose 86 Calcium 8.8 Vancomycin Peak Vancomycin Trough PFSH Medical History (Updated 07/10/22 @ 03:52 by Solo Ibarra MD) ADHD Allergies Anemia Anxiety Asthma Chicken pox Chronic anticoagulation Depression Eczema Irritable bowel syndrome (~2012) Renal infarction (~2020) Scoliosis Seasonal allergies Surgical History Anesthesia History of hysterectomy (~12/2019) Transgender with history of gender affirmation surgery Family History Father History of heart disease Hypertension Mother Diabetes mellitus Mental health problem Stroke Sister Mental health problem Sister Mental health problem Grandmother Cancer Grandmother Alzheimer's disease Social History household members: spouse Smoking Status: Never smoker alcohol intake: never Discharge Plan Discharge Plan Patient Disposition: Home Provider Discharge Comment: You were diagnosed with pericarditis (inflammation to the sac around the heart). It may have been triggered by a virus, though in some cases it can be triggered by autoimmune disease. Please schedule an appointment w/rheumatology to establish care given your history of being lupus anticoagulant positive, having kidney infarcts and now this new pericarditis. Continue taking the colchicine until gone. Colchicine can cause some mild diarrhea. I suspect your rash is from shingles. I am giving you a prescription for Valtrex to use if the occurs again. Do not take it now as the rash has been present for too long. It should be started within 72 hours of onset of symptoms (preferably within 48 hours) You have high eosinophils in the blood (White blood cells that are elevated in people with significant allergies). Please f/u with the senior maintenance mechanic given your poorly controlled eczema and generalized allergy symptoms. Return to the ED: Recurrent fevers Shortness of breath Recurrent chest pain Inability to hold down food/fluids worsening rash Nursing Discharge Comment: return to ER/ call 911 if the symptoms that brought you to the ER return. call Primary Care Physician for questions about medications. it is good practice to check your vital signs twice a day for a week or two and take the results to the follow up appt w/ your PCP. see your PCP w/in 7-10 days of discharge. it was a pleasure to be your nurse today, please take care of yourself and enjoy the rest of this beautiful day! Discharge orders & Medications Prescriptions: New colchicine 0.6 mg Tablet 0.6 mg PO BID Qty: 180 0RF valacyclovir [Valtrex] 1 gram tablet 1,000 mg PO Q8H Qty: 21 0RF Continued testosterone 1.62 % (20.25 mg/1.25 gram) gel in packet 1 packet topical DAILY Qty: 37.5 3RF montelukast [Singulair] 10 mg tablet 10 mg PO DAILY Zyrtec 10 mg capsule 10 mg PO DAILY Fergon 225 mg (27 mg iron) tablet 225 mg PO DAILY multivitamin Tablet 1 tab PO DAILY fluticasone propionate 50 mcg/actuation spray,suspension 1 spray intranasal DAILY Rx Instructions: administer into each nostril albuterol sulfate 90 mcg/actuation HFA aerosol inhaler 2 puff inhalation Q6H PRN (Reason: Wheezing) albuterol sulfate 1.25 mg/3 mL solution for nebulization 1.25 mg inhalation QID PRN (Reason: Wheezing) calcium citrate 200 mg (950 mg) tablet 200 mg PO DAILY Eliquis 5 mg Tablet 5 mg PO BID fluticasone propion-salmeterol [Advair HFA] 115-21 mcg/actuation Hfa Aerosol Inhaler 2 puff INHALATION DAILY triamcinolone acetonide 0.1 % lotion 1 applic TOPICAL DAILY PRN (Reason: eczema flair) Patient Comments: apply topically twice a day Follow up/Referrals: Ochoa Owens MD [Primary Care Provider] - Discharge Health Status Multidrug resistant organism: No MDRO Diet/Activity/Treatments Diet: Diet as Tolerated and Regular Activity: As tolerated Oxygen: N/A Visit Report/Discharge Packet Instructions: Eosinophilia, Herpes Zoster Vaccine, DI for Shingles, DI for Pericarditis, Colchicine, Valacyclovir Stand Alone Forms: Patient Portal/API, Stroke Signs & Symptoms, Work/Release Restrictions Discharge Data Primary Care Provider: Ochoa Owens Attending Provider: Solo Ibarra Admit Date/Time: 07/10/22 00:33 Discharges patient from system. Discharge Date/Time: 07/12/22 12:19
[2022-07-14 01:13] LABS: Hepatitis B Core Antibody Negative (Negative)
[2022-07-15 07:43] LABS: Hepatitis B Surf Ab Qualitativ Non Reactive (.)
[2022-07-15 11:32] LABS: CCP Antibodies IgG/IgA 2 units (0-19)
[2022-07-16 17:13] LABS: ANA Screen, IFA Negative (.)
== END 2022-07-12 12:19 | disposition home or self-care (01) | DRG 315 ==
LOC: ED 07-10 00:31 → AC 07-10 02:59
PROVIDERS: Internal Medicine; Admitting Provider Internal Medicine; Emergency Provider Emergency Medicine; PCP Family Medicine; Referring Provider Emergency Medicine; Visit Provider Internal Medicine
DX: I30.1 Infective pericarditis (principal); D68.62 Lupus anticoagulant syndrome; J45.909 Unspecified asthma, uncomplicated; L20.9 Atopic dermatitis, unspecified; B02.9 Zoster without complications; Z79.890 Hormone replacement therapy; Z79.01 Long term (current) use of anticoagulants; Z20.822 Contact with and (suspected) exposure to COVID-19
CPT/HCPCS: 36415; 71045; 71275; 74177; 80048; 80053; 80202; 81003; 82728; 83605; 83615; 83690; 84145; 84484; 84703; 85025; 85651; 86038; 86140; 86200; 86430; 86704; 86706; 86803; 87040; 87086; 87340; 87389; 87633; 87797; 93005; 93010; 96361; 96365; 96366; 96367; 96375; 99284; G0378; J0696; J2270; J2543; Q9967

== ENCOUNTER → 2022-07-25 09:15 | Outpatient (CLI) | payer OTHER, SELFPAY ==
[2022-07-10 03:13] VITALS: BMI 41.6
[2022-07-25 09:56] LABS: Add Manual Diff / Slide Review NO; Basophils Absolute Auto 100 /uL (0-100); Basophils Percent Auto 0.8 % (0-2); Eosinophils Absolute Auto 800 /uL (0-450); Eosinophils Percent Auto 6.7 % (2-4); Hematocrit 43.7 % (41-53); Hemoglobin 14.6 g/dL (13.5-17.5); Lymphocytes Absolute Auto 1900 /uL (1100-4500); Mean Corpuscular HGB Conc 33.4 % (30-36); Mean Corpuscular Hemoglobin 26.1 PG (26-34); Mean Corpuscular Volume 78.1 fL (80-100); Monocytes Absolute Auto 700 /uL (0-900); Monocytes Percent Auto 5.9 % (3-14); Neutrophils Absolute Auto 8300 /uL (1500-7000); Neutrophils Percent Auto 70.6 % (50-75); Platelet Count 374 X10^3/uL (150-400); Red Blood Cell Count 5.59 X10^6/uL (4.5-5.9); Red Cell Distribution Width 14.8 % (11.6-14.8); White Blood Cell Count 11.8 X10^3/uL (4.5-11.0)
[2022-07-25 10:24] LABS: Erythrocyte Sedimentation Rate 4 MM/HR (0-15)
[2022-07-25 10:40] LABS: C-Reactive Protein Quant 0.7 mg/dL (<1.0)
[2022-08-01 08:17] LABS: Percent Free Testosterone 3.76 % (1.50-4.20); Testosterone Free 6.31 ng/dL (5.00-21.00); Testosterone Total 167.9 ng/dL (264.0-916.0)
== END ==
PROVIDERS: PCP Family Medicine; Referring Provider Family Medicine; Visit Provider Family Medicine
DX: D72.829 Elevated white blood cell count, unspecified (principal); I31.9 Disease of pericardium, unspecified; R50.9 Fever, unspecified
CPT/HCPCS: 36415; 84402; 84403; 85025; 85651; 86140

== ENCOUNTER → 2022-10-13 07:56 | Outpatient (CLI) | payer OTHER, SELFPAY ==
[2022-07-10 03:13] VITALS: BMI 41.6
--- NOTE | 2022-10-13 07:57 | DI.ECHO.S_ITS ---
[facility]---------+ [facility] +---------+ : : [address] : : : : [id number] : : : : Phone: [phone]+ Echocardiogram Report + + :Name: TONE GALLAGHER Study Date: 10/13/2022 Height: 59 in : :[facility] ReadingLocation: Weight: 200 lb : : Gender: Male BSA: 1.8 m2 : :: 1990 Age: 32 yrs BP: 155/103 mmHg: :Reason For Study: Pericarditis : :Ordering Physician: WILLIS, : :ROSA Performed By: Leonora Saleem : :Referring: ROSA PEDRO : + + Interpretation Summary Normal sinus rhythm. Normal LV size and mildly increased wall thickness. Normal wall motion and LV systolic function. Ejection fraction is 50-55%. Normal chamber sizes. No significant valvular abnormalities. No pericardial effusion No prior study available for comparison. Procedure: A two-dimensional transthoracic echocardiogram with color flow and Doppler was performed. The study quality was technically adequate. There is no prior echocardiogram noted for this patient. The patient was in normal sinus rhythm during the exam. Left Ventricle: The left ventricle is normal in size. The ejection fraction is estimated to be 50-55%. Diastolic parameters suggest probable normal left ventricular diastolic function and normal filling pressures. Right Ventricle: The right ventricle is normal in size and function. Atria: The left atrial size is normal. Right atrial size is normal. There is no Doppler evidence for an interatrial shunt. Mitral Valve: The mitral valve leaflets appear mildly thickened, but open well. There is mild mitral annular calcification. There is no mitral valve stenosis. There is trace mitral regurgitation. Aortic Valve: The aortic valve is not well visualized but is presumably normal. There is no aortic valve stenosis. No aortic regurgitation is present. Tricuspid Valve: The tricuspid valve is normal. There is no tricuspid stenosis. There is trace tricuspid regurgitation. Pulmonary artery pressures cannot be estimated because of the lack of a measurable TR jet velocity. Pulmonic Valve: The pulmonic valve is not well visualized. There is no pulmonic valvular stenosis. There is no pulmonic valvular regurgitation. Great Vessels: The aortic root is normal size. The ascending aorta is normal in size. The pulmonary artery is normal size. The IVC is of normal diameter and collapses greater than 50% with a sniff. This suggests a low right atrial pressure of 3 mm Hg. Pericardium/ Pleura There is no pericardial effusion. There is no pleural effusion. MMode/2D Measurements & Calculations LVIDd: 4.1 cm LVOT diam: 1.7 cm LVIDs: 2.7 cm Ao root diam: 2.4 cm FS: 34.1 % asc Aorta Diam: 2.4 cm IVSd: 1.0 cm LVPWd: 1.1 cm LV lewis. diameter/BSA (cm/m^2): 2.2 LV sys. diameter/BSA (cm/m^2): 1.5 LA A2 area: 12.0 cm2 RA long axis: 4.1 cm LA A4 area: 14.0 cm2 RA area: 9.2 cm2 LA length (vol): 4.5 cm RA vol: 17.7 ml LA vol: 31.5 ml RA : 9.6 ml/m2 LA vol index: 17.1 ml/m2 RVD1 (basal): 3.1 cm LVLs ap4: 6.7 cm LVLd ap2: 7.9 cm TAPSE_phl: 1.8 cm LVLs ap2: 6.8 cm Doppler Measurements & Calculations Ao V2 max: 125.0 cm/sec LVOT Max Bo[place]: 115.5 cm/sec Ao V2 mean: 88.9 cm/sec LV V1 max P.3 mmHg Ao max P.0 mmHg LV V1 VTI: 21.5 cm Ao mean P.5 mmHg SOHA(I,D): 2.0 cm2 Ao V2 VTI: 24.4 cm SOHA(V,D): 2.1 cm2 sev ratio: 0.88 SOHA indexed to BSA (cm^2/m^2): 1.1 MV E max boone: 130.0 cm/sec PA V2 max: 87.8 cm/sec MV A max boone: 54.8 cm/sec PA V2 mean: 60.8 cm/sec MV E/A: 2.4 PA mean P.0 mmHg Med Peak E' Boone: 9.9 cm/sec PA pr(Accel): 39.8 mmHg E/E' med: 13.1 Lat Peak E' Boone: 15.2 cm/sec E/E' lat: 8.6 E/e' average: 10.8 MV dec time: 0.14 sec SV(LVOT): 48.8 ml AV VR_phl: 0.93 SOHA(VTI)/BSA_phl: 1.1 Electronically signed by: Kathleen Morelos M.D. on Reading Physician:10/16/2022 10:43 AM
== END ==
PROVIDERS: PCP Family Medicine; Referring Provider Family Medicine; Visit Provider Family Medicine
DX: I31.9 Disease of pericardium, unspecified (principal); R50.9 Fever, unspecified; D72.829 Elevated white blood cell count, unspecified; I34.81 Nonrheumatic mitral (valve) annulus calcification
CPT/HCPCS: 93306

== ENCOUNTER → 2023-01-06 13:36 | Outpatient (CLI) | payer OTHER, SELFPAY ==
[2022-07-10 03:13] VITALS: BMI 41.6
[2023-01-13 07:26] LABS: Dilute Russell Viper Venom 41.5 sec (0.0-47.0); Lupus Reflex Interpretation Comment: (.); PTT- LA Mix 39.4 sec (0.0-40.5); PTT-LA Incub Mix 39.9 sec (0.0-40.5)
== END ==
PROVIDERS: PCP Family Medicine; Referring Provider Family Medicine; Visit Provider Family Medicine
DX: R76.0 Raised antibody titer (principal); N28.0 Ischemia and infarction of kidney; Z79.01 Long term (current) use of anticoagulants
CPT/HCPCS: 36415; 85598; 85613

== ENCOUNTER → 2023-04-14 08:11 | Outpatient (CLI) | payer OTHER, SELFPAY ==
[2022-07-10 03:13] VITALS: BMI 41.6
[2023-04-14 08:42] LABS: Add Manual Diff / Slide Review NO; Basophils Absolute Auto 100 /uL (0-100); Basophils Percent Auto 0.6 % (0-2); Eosinophils Absolute Auto 1100 /uL (0-450); Eosinophils Percent Auto 9.7 % (2-4); Hematocrit 43.2 % (41-53); Hemoglobin 14.3 g/dL (13.5-17.5); Lymphocytes Absolute Auto 2600 /uL (1100-4500); Lymphocytes Percent Auto 23.4 % (25-40); Mean Corpuscular Hemoglobin 25.8 PG (26-34); Mean Corpuscular Volume 78.1 fL (80-100); Monocytes Absolute Auto 700 /uL (0-900); Neutrophils Absolute Auto 6800 /uL (1500-7000); Neutrophils Percent Auto 60.3 % (50-75); Platelet Count 392 X10^3/uL (150-400); Red Blood Cell Count 5.53 X10^6/uL (4.5-5.9); White Blood Cell Count 11.2 X10^3/uL (4.5-11.0)
[2023-04-14 09:17] LABS: Creatinine Urine Random 89.8 mg/dL
[2023-04-14 09:21] LABS: Microalbumi Creatinin Ratio Ur 18.9 ug/mg CR (<30); Microalbumin Urine Random 1.7 mg/dL (0-1.6)
[2023-04-14 09:38] LABS: TSH w/ Reflex to FT4 1.59 uIU/mL (0.47-4.68)
[2023-04-14 10:57] LABS: Alanine Aminotransferase 25 IU/L (<50); Albumin 4.4 g/dL (3.5-5.0); Albumin Globulin Ratio 1.3 (1.0-2.8); Alkaline Phosphatase 119 U/L (38-126); Aspartate Aminotransferase 26 IU/L (17-59); Bilirubin Total 0.6 mg/dL (0.2-1.3); Blood Urea Nitrogen 18 mg/dL (9-20); Calcium 9.7 mg/dL (8.4-10.2); Carbon Dioxide 26 mmol/L (22-32); Chloride 107 mmol/L (98-107); Cholesterol 210 mg/dL (140-199); Estimated Glomerular Filt Rate > 60 mL/min (>60); Globulin 3.4 g/dL (1.7-4.1); Glucose 92 mg/dL (70-100); HDL Cholesterol 35 mg/dL (40-60); HEMOLYSIS < 15 (0-50); LDL Cholesterol Calculated 138 mg/dL (<100); Potassium 4.4 mmol/L (3.4-5.1); Sodium 140 mmol/L (137-145); Total Protein 7.8 g/dL (6.3-8.2); Triglycerides 183 mg/dL (35-150)
[2023-04-14 11:21] LABS: Hemoglobin A1C% w Est Avg Glu 5.5 % (4.0-6.0)
[2023-04-15 08:55] LABS: Apolipoprotein B 108 mg/dL (<90)
[2023-04-16 08:11] LABS: Adrenocorticotropic Hormone 28.3 pg/mL (7.2-63.3)
[2023-04-20 11:25] LABS: Percent Free Testosterone 2.17 % (1.50-4.20); Testosterone Free 2.01 ng/dL (5.00-21.00); Testosterone Total 92.7 ng/dL (264.0-916.0)
== END ==
PROVIDERS: PCP Family Medicine; Referring Provider Family Medicine; Visit Provider Family Medicine
DX: R63.5 Abnormal weight gain (principal); R76.0 Raised antibody titer; D72.829 Elevated white blood cell count, unspecified; F41.9 Anxiety disorder, unspecified
CPT/HCPCS: 36415; 80053; 80061; 82024; 82043; 82172; 82533; 82570; 83036; 84402; 84403; 84443; 85025

== ENCOUNTER → 2023-10-01 10:28 | Outpatient (CLI) | payer OTHER, SELFPAY ==
[2022-07-10 03:13] VITALS: BMI 41.6
--- NOTE | 2023-10-01 10:31 | DI.RAD.S_ITS ---
PROCEDURE: XR ELBOW RT MIN 3V INDICATIONS: chronic knee, elbow, ankle, shoulder TECHNIQUE: 3 views of the elbow were acquired. COMPARISON: None. FINDINGS: Bones: No fractures or dislocations. No suspicious bony lesions. Soft tissues: No elbow joint effusion. No suspicious soft tissue calcifications. IMPRESSION: No acute bony abnormality or significant joint effusion. Dictated by: Parker Mckenzie M.D. on 10/01/2023 at 22:40 Approved by: Parker Mckenzie M.D. on 10/01/2023 at 22:41
--- NOTE | 2023-10-01 10:31 | DI.RAD.S_ITS ---
P is ROCEDURE: XR ANKLE RT MIN 3V INDICATIONS: chronic knee, elbow, ankle, shoulder TECHNIQUE: 3 views of the ankle were acquired. COMPARISON: None. FINDINGS: Bones: No fractures or dislocations. Ankle mortise is normally aligned. No suspicious bony lesions. Small plantar calcaneal enthesophyte. Soft tissues: No tibiotalar joint effusion. Achilles tendon appears normal. IMPRESSION: No acute bony abnormality or significant effusion. Dictated by: Arabella Peralta M.D. on 10/01/2023 at 18:07 Approved by: Arabella Peralta M.D. on 10/01/2023 at 18:08
--- NOTE | 2023-10-01 10:31 | DI.RAD.S_ITS ---
PROCEDURE: XR SHOULDER LT MIN 2V INDICATIONS: chronic knee, elbow, ankle, shoulder TECHNIQUE: 3 views of the shoulder were acquired. COMPARISON: None. FINDINGS: Bones: No fractures or dislocations. No suspicious bony lesions. Visualized ribs appear intact. Soft tissues: No suspicious soft tissue calcifications. IMPRESSION: No acute bony abnormality. Dictated by: Parker Mckenzie M.D. on 10/01/2023 at 22:42 Approved by: Parker Mckenzie M.D. on 10/01/2023 at 22:42
--- NOTE | 2023-10-01 10:31 | DI.RAD.S_ITS ---
PROCEDURE: XR KNEE LT 3V INDICATIONS: chronic knee, elbow, ankle, shoulder TECHNIQUE: 3 views of the knee were acquired. COMPARISON: None. FINDINGS: Bones: No acute fracture or dislocation. Joint spaces are well maintained. Soft tissues: No joint effusion. No suspicious soft tissue calcifications. IMPRESSION: No acute bony abnormality or significant effusion. Dictated by: Arabella Peralta M.D. on 10/01/2023 at 18:08 Approved by: Arabella Peralta M.D. on 10/01/2023 at 18:09
--- NOTE | 2023-10-01 10:31 | DI.RAD.S_ITS ---
PROCEDURE: XR KNEE RT 3V INDICATIONS: chronic knee, elbow, ankle, shoulder TECHNIQUE: 3 views of the knee were acquired. COMPARISON: None. FINDINGS: Bones: No fractures or dislocations. No suspicious bony lesions. Soft tissues: No joint effusion. No suspicious soft tissue calcifications. IMPRESSION: No acute bony abnormality or significant effusion. Dictated by: Parker Mckenzie M.D. on 10/01/2023 at 22:41 Approved by: Parker Mckenzie M.D. on 10/01/2023 at 22:42
--- NOTE | 2023-10-01 10:31 | DI.RAD.S_ITS ---
PROCEDURE: XR ELBOW LT MIN 3V INDICATIONS: chronic knee, elbow, ankle, shoulder TECHNIQUE: 3 views of the elbow were acquired. COMPARISON: None. FINDINGS: Bones: No fractures or dislocations. No suspicious bony lesions. Soft tissues: No elbow joint effusion. No suspicious soft tissue calcifications. IMPRESSION: No acute bony abnormality or significant joint effusion. Dictated by: Parker Mckenzie M.D. on 10/01/2023 at 22:40 Approved by: Parker Mckenzie M.D. on 10/01/2023 at 22:40
--- NOTE | 2023-10-01 10:31 | DI.RAD.S_ITS ---
PROCEDURE: XR SHOULDER RT MIN 2V INDICATIONS: chronic knee, elbow, ankle, shoulder TECHNIQUE: 3 views of the shoulder were acquired. COMPARISON: None. FINDINGS: No acute fracture or dislocation. Joint spaces are well maintained. IMPRESSION: No acute bony abnormality. Dictated by: Arabella Peralta M.D. on 10/01/2023 at 18:10 Approved by: Arabella Peralta M.D. on 10/01/2023 at 18:11
--- NOTE | 2023-10-01 10:31 | DI.RAD.S_ITS ---
PROCEDURE: XR ANKLE LT MIN 3V INDICATIONS: chronic knee, elbow, ankle, shoulder TECHNIQUE: 3 views of the ankle were acquired. COMPARISON: None. FINDINGS: Bones: No fractures or dislocations. Ankle mortise is normally aligned. No suspicious bony lesions. Soft tissues: No tibiotalar joint effusion. Achilles tendon appears normal. IMPRESSION: No acute bony abnormality or significant effusion. Dictated by: Arabella Peralta M.D. on 10/01/2023 at 18:06 Approved by: Arabella Peralta M.D. on 10/01/2023 at 18:06
--- NOTE | 2023-10-01 10:31 | DI.RAD.S_ITS ---
PROCEDURE: XR LUMBAR SPINE 2-3V INDICATIONS: chronic knee, elbow, ankle, shoulder TECHNIQUE: 3 views of the lumbar spine were acquired. COMPARISON: None. FINDINGS: Grade 1 anterolisthesis of L5 on S1. Vertebral body heights are well-maintained. Mild degenerative disease of the visualized lower thoracic spine. Disc space of the lumbar spine is well maintained. No significant facet arthropathy. IMPRESSION: No acute bony abnormality. Dictated by: Arabella Peralta M.D. on 10/01/2023 at 18:09 Approved by: Arabella Peralta M.D. on 10/01/2023 at 18:10
[2023-10-01 12:00] LABS: Add Manual Diff / Slide Review NO; Basophils Absolute Auto 100 /uL (0-100); Basophils Percent Auto 0.6 % (0-2); Eosinophils Absolute Auto 500 /uL (0-450); Eosinophils Percent Auto 4.4 % (2-4); Hemoglobin 14.1 g/dL (13.5-17.5); Lymphocytes Absolute Auto 2900 /uL (1100-4500); Lymphocytes Percent Auto 23.3 % (25-40); Mean Corpuscular HGB Conc 32.9 % (30-36); Mean Corpuscular Hemoglobin 25.9 PG (26-34); Mean Corpuscular Volume 78.9 fL (80-100); Monocytes Absolute Auto 800 /uL (0-900); Monocytes Percent Auto 6.5 % (3-14); Neutrophils Absolute Auto 8000 /uL (1500-7000); Neutrophils Percent Auto 65.2 % (50-75); Platelet Count 392 X10^3/uL (150-400); Red Blood Cell Count 5.45 X10^6/uL (4.5-5.9); White Blood Cell Count 12.3 X10^3/uL (4.5-11.0)
[2023-10-01 12:23] LABS: Alanine Aminotransferase 28 IU/L (<50); Albumin 4.5 g/dL (3.5-5.0); Albumin Globulin Ratio 1.4 (1.0-2.8); Alkaline Phosphatase 129 U/L (38-126); Aspartate Aminotransferase 30 IU/L (17-59); BUN Creatinine Ratio 25.7 (6-22); Bilirubin Total 0.3 mg/dL (0.2-1.3); Blood Urea Nitrogen 19 mg/dL (9-20); C-Reactive Protein Quant 0.9 mg/dL (<1.0); Calcium 9.5 mg/dL (8.4-10.2); Carbon Dioxide 24 mmol/L (22-32); Chloride 106 mmol/L (98-107); Cholesterol 140 mg/dL (140-199); Estimated Glomerular Filt Rate > 60 mL/min (>60); Globulin 3.3 g/dL (1.7-4.1); Glucose 88 mg/dL (70-100); HDL Cholesterol 32 mg/dL (40-60); HEMOLYSIS < 15 (0-50); LDL Cholesterol Calculated 71 mg/dL (<100); Potassium 4.1 mmol/L (3.4-5.1); Sodium 141 mmol/L (137-145); Total Protein 7.8 g/dL (6.3-8.2); Triglycerides 185 mg/dL (35-150)
[2023-10-01 12:37] LABS: Rheumatoid Factor < 8.6 IU/mL (<12.0)
[2023-10-01 12:39] LABS: Erythrocyte Sedimentation Rate 7 MM/HR (0-15)
[2023-10-01 13:11] LABS: Vitamin B12 740 pg/mL (239-931)
== END ==
LOC: LAB 10:28 → RAD 10:30
PROVIDERS: PCP Family Medicine; Referring Provider Family Medicine; Visit Provider Family Medicine
DX: M25.50 Pain in unspecified joint (principal); R63.5 Abnormal weight gain; G89.29 Other chronic pain; D72.829 Elevated white blood cell count, unspecified; F41.9 Anxiety disorder, unspecified; F64.0 Transsexualism; Z79.899 Other long term (current) drug therapy; Z87.890 Personal history of sex reassignment
CPT/HCPCS: 36415; 72100; 73030; 73080; 73562; 73610; 80053; 80061; 82607; 84402; 84403; 84443; 85025; 85651; 86140; 86200; 86430

== ENCOUNTER → 2023-11-05 15:01 | Outpatient (CLI) | payer OTHER, SELFPAY ==
[2022-07-10 03:13] VITALS: BMI 41.6
--- NOTE | 2023-11-10 10:16 | DIET.OUTPTC ---
Dietary Outpatient Consultation Note Consultation Date: 11/05/2023 Assessment: 33 y M referred to dietitian for abnormal weight gain. Pt and present for visit. Eric reports difficulty with weight loss. 2 yrs ago 60 lb loss, regain 30 lb within 3 month period last year this time. Has not been able to lose 30 lb again despite measuring and counting calories. Started off with 2000 kcals, then dropped to 1600 kcals. Stopped tracking 3wks ago. No changes in weight. He reports having ARFID like symptoms with certain vegetables and fruits and hx of binge eating. He and work to modify textures of foods he has aversions to or finds alternative vegetables and fruits to replace. 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 Ht: 4 ft 11 in Wt: 227 lb 6 oz BMI: 45.9 UBW: -30 lb Interventions: Discussed topics including: -Macro distribution, appropriate caloric needs -Fiber intake, sources -Balanced meals and dietary patterns that emphasis these (DASH, Mediterranean) -Hunger/fullness scale, intuitive eating style Goals- Pt has successfully maintained 30 lb weight loss, encouraged continued efforts pt is making. Discussed minor changes to overall dietary pattern-Encouraged consistent 5+ serving of fruits and vegetables added to intake, reduction in regular soda, monitoring saturated fat intake when out to eat/balancing meals when out to eat with fiber source, i.e. pizza with side of non-strach veg, and consumption of adequate calories EER: [id number] kcals (MSJ [id number]), 65 g protein (1 g/kg Act.IBW) Monitoring/Evaluations: f/u in 6 wks Electronically Signed by: Tanisha Borja 11/10/23 10:16 Clinical Dietitian [address] [id number]
== END ==
PROVIDERS: PCP Family Medicine; Referring Provider Family Medicine
DX: R63.5 Abnormal weight gain (principal); Z68.42 Body mass index [BMI] 45.0-49.9, adult; F64.0 Transsexualism; Z79.899 Other long term (current) drug therapy; R76.0 Raised antibody titer; D72.829 Elevated white blood cell count, unspecified; F41.9 Anxiety disorder, unspecified; Z87.890 Personal history of sex reassignment; M25.50 Pain in unspecified joint; G89.29 Other chronic pain
CPT/HCPCS: 97802

== ENCOUNTER → 2023-12-16 11:04 | Outpatient (CLI) | payer OTHER, SELFPAY ==
[2022-07-10 03:13] VITALS: BMI 41.6
[2023-12-25 17:09] LABS: Percent Free Testosterone 2.82 % (1.50-4.20); Testosterone Free 6.87 ng/dL (5.00-21.00); Testosterone Total 243.6 ng/dL (264.0-916.0)
== END ==
PROVIDERS: PCP Family Medicine; Referring Provider Family Medicine; Visit Provider Family Medicine
DX: Z87.890 Personal history of sex reassignment (principal); Z79.890 Hormone replacement therapy; D72.829 Elevated white blood cell count, unspecified
CPT/HCPCS: 36415; 84402; 84403

== ENCOUNTER → 2024-02-18 13:31 | Outpatient (CLI) | payer OTHER, SELFPAY ==
[2022-07-10 03:13] VITALS: BMI 41.6
== END ==
PROVIDERS: PCP Family Medicine; Referring Provider Family Medicine; Visit Provider Family Medicine
DX: R00.2 Palpitations (principal)
CPT/HCPCS: 93246; 93248

== ENCOUNTER → 2024-03-11 13:57 | Outpatient (CLI) | payer OTHER, SELFPAY ==
[2022-07-10 03:13] VITALS: BMI 41.6
[2024-03-11 14:30] LABS: Add Manual Diff / Slide Review NO; Basophils Absolute Auto 100 /uL (0-100); Basophils Percent Auto 0.5 % (0-2); Eosinophils Absolute Auto 600 /uL (0-450); Eosinophils Percent Auto 4.9 % (2-4); Hematocrit 45.3 % (41-53); Hemoglobin 14.7 g/dL (13.5-17.5); Lymphocytes Absolute Auto 3100 /uL (1100-4500); Lymphocytes Percent Auto 26.4 % (25-40); Mean Corpuscular HGB Conc 32.4 % (30-36); Mean Corpuscular Hemoglobin 25.3 PG (26-34); Mean Corpuscular Volume 78.1 fL (80-100); Monocytes Absolute Auto 800 /uL (0-900); Monocytes Percent Auto 6.9 % (3-14); Neutrophils Absolute Auto 7100 /uL (1500-7000); Neutrophils Percent Auto 61.3 % (50-75); Platelet Count 373 X10^3/uL (150-400); Red Blood Cell Count 5.81 X10^6/uL (4.5-5.9); Red Cell Distribution Width 15.4 % (11.6-14.8); White Blood Cell Count 11.6 X10^3/uL (4.5-11.0)
[2024-03-11 14:53] LABS: HEMOLYSIS < 15 (0-50); Iron 56 ug/dL (49-181)
[2024-03-11 14:55] LABS: Cholesterol 134 mg/dL (140-199); HDL Cholesterol 30 mg/dL (40-60); LDL Cholesterol Calculated 49 mg/dL (<100); Triglycerides 273 mg/dL (35-150)
[2024-03-11 15:04] LABS: Percent Iron Saturation 21 % (20-50); Total Iron Binding Capacity 268 ug/dL (261-462); Transferrin 237 mg/dL (206-381)
[2024-03-11 15:26] LABS: TSH w/ Reflex to FT4 1.15 uIU/mL (0.47-4.68)
[2024-03-11 15:30] LABS: Ferritin 48 ng/mL (18-464)
[2024-03-13 08:38] LABS: Apolipoprotein B 69 mg/dL (<90)
== END ==
LOC: LAB 13:58
PROVIDERS: PCP Family Medicine; Referring Provider Family Medicine; Visit Provider Family Medicine
DX: R76.0 Raised antibody titer (principal); D72.829 Elevated white blood cell count, unspecified; F41.9 Anxiety disorder, unspecified; F64.0 Transsexualism; Z79.899 Other long term (current) drug therapy; Z87.890 Personal history of sex reassignment; R63.5 Abnormal weight gain; R00.0 Tachycardia, unspecified; R03.0 Elevated blood-pressure reading, without diagnosis of hypertension; R79.89 Other specified abnormal findings of blood chemistry
CPT/HCPCS: 36415; 80061; 82172; 82728; 83540; 83550; 84402; 84403; 84443; 85025

== ENCOUNTER → 2024-03-12 10:57 | Outpatient (CLI) | payer OTHER, SELFPAY ==
[2022-07-10 03:13] VITALS: BMI 41.6
[2024-03-12 14:18] LABS: Creatinine Urine Random 163.83 mg/dL
[2024-03-12 14:23] LABS: Microalbumin Urine Random 1.7 mg/dL (0-1.6)
== END ==
PROVIDERS: PCP Family Medicine; Referring Provider Family Medicine; Visit Provider Family Medicine
DX: R00.0 Tachycardia, unspecified (principal); D72.829 Elevated white blood cell count, unspecified; F64.0 Transsexualism; Z79.899 Other long term (current) drug therapy; F41.9 Anxiety disorder, unspecified; R63.5 Abnormal weight gain; R03.0 Elevated blood-pressure reading, without diagnosis of hypertension
CPT/HCPCS: 82043; 82570

== ENCOUNTER → 2024-08-19 09:28 | Outpatient (CLI) | payer OTHER, SELFPAY ==
[2022-07-10 03:13] VITALS: BMI 41.6
[2024-08-19 10:23] LABS: Add Manual Diff / Slide Review NO; Hematocrit 45.1 % (41-53); Hemoglobin 15.2 g/dL (13.5-17.5); Lymphocytes Absolute Auto 2900 /uL (1100-4500); Mean Corpuscular HGB Conc 33.6 % (30-36); Mean Corpuscular Hemoglobin 26.3 PG (26-34); Mean Corpuscular Volume 78.1 fL (80-100); Platelet Count 389 X10^3/uL (150-400)
[2024-08-19 10:39] LABS: Alanine Aminotransferase 42 IU/L (<50); Albumin 4.7 g/dL (3.5-5.0); Albumin Globulin Ratio 1.5 (1.0-2.8); Alkaline Phosphatase 131 U/L (38-126); Blood Urea Nitrogen 14 mg/dL (9-20); Calcium 9.7 mg/dL (8.4-10.2); Carbon Dioxide 26 mmol/L (22-32); Chloride 104 mmol/L (98-107); Cholesterol 141 mg/dL (140-199); Estimated Glomerular Filt Rate > 60 mL/min (>60); Globulin 3.2 g/dL (1.7-4.1); Glucose 93 mg/dL (70-99); HDL Cholesterol 37 mg/dL (40-60); HEMOLYSIS < 15 (0-50); Potassium 4.6 mmol/L (3.4-5.1); Sodium 139 mmol/L (137-145); Total Protein 7.9 g/dL (6.3-8.2); Triglycerides 137 mg/dL (35-150)
[2024-08-19 11:08] LABS: TSH w/ Reflex to FT4 1.49 uIU/mL (0.47-4.68)
== END ==
PROVIDERS: PCP Family Medicine; Referring Provider Family Medicine; Visit Provider Family Medicine
DX: F64.0 Transsexualism (principal); Z79.899 Other long term (current) drug therapy; D72.829 Elevated white blood cell count, unspecified; F41.9 Anxiety disorder, unspecified; I10 Essential (primary) hypertension; R79.89 Other specified abnormal findings of blood chemistry; R00.0 Tachycardia, unspecified
CPT/HCPCS: 36415; 80053; 80061; 84402; 84403; 84443; 85025

== ENCOUNTER → 2024-11-24 13:27 | Outpatient (CLI) | payer OTHER, SELFPAY ==
[2022-07-10 03:13] VITALS: BMI 41.6
[2024-11-24 16:32] LABS: Alanine Aminotransferase 43 IU/L (<50); Albumin 4.5 g/dL (3.5-5.0); Albumin Globulin Ratio 1.5 (1.0-2.8); Alkaline Phosphatase 123 U/L (38-126); Blood Urea Nitrogen 17 mg/dL (9-20); Calcium 9.2 mg/dL (8.4-10.2); Carbon Dioxide 25 mmol/L (22-32); Chloride 105 mmol/L (98-107); Estimated Glomerular Filt Rate > 60 mL/min (>60); Gamma Glutamyl Transpeptidase 32 U/L (15-73); Globulin 3.1 g/dL (1.7-4.1); Glucose 77 mg/dL (70-99); HEMOLYSIS 21 (0-50); Potassium 5.1 mmol/L (3.4-5.1); Sodium 140 mmol/L (137-145); Total Protein 7.6 g/dL (6.3-8.2)
[2024-11-30 08:11] LABS: Percent Free Testosterone 2.87 % (1.50-4.20)
== END ==
PROVIDERS: PCP Family Medicine; Referring Provider Family Medicine; Visit Provider Family Medicine
DX: F64.0 Transsexualism (principal); Z79.899 Other long term (current) drug therapy; I10 Essential (primary) hypertension; R74.8 Abnormal levels of other serum enzymes; F41.9 Anxiety disorder, unspecified
CPT/HCPCS: 36415; 80053; 82977; 84402; 84403